=== PATIENT | male | born 1985 | race Caucasian/White ===

== ENCOUNTER 2017-02-02 00:13 | Inpatient (IN) | payer MEDICAID, OTHER ==
--- NOTE | 2017-02-02 01:23 | ED ---
Psych HPI - General Chief Complaint: Psychiatric Symptoms Stated Complaint: Mental Health Time Seen by Provider: 02/02/17 00:32 Source: patient Mode of arrival: ambulatory - History of Present Illness Initial Comments: 31-year-old male patient presents to emergency department today with chief complaints of suicidal ideation. Patient states that he has been depressed and having thoughts of killing himself since Saturday. Patient states he has thought of many ways to do it including shooting himself or his most likely plan to jump off the bridge. Patient states that he has been using drugs including cocaine, opiates, and marijuana. Patient states that he feels like he has had depression for a long time however has never been diagnosed. Patient denies any use of antidepressant medications. Denies counseling or seeing psychiatrist. Patient denies ever trying to harm himself in the past. Patient denies any alcohol use. Denies any physical symptoms or concerns. - Related Data Previous Rx's Medication Instructions Recorded HYDROcodone/APAP 5-325MG [[place] 5] 1 each PO Q4HR PRN #10 tab 06/30/15 Allergies Allergy/AdvReac Type Severity Reaction Status Date / Time ibuprofen Allergy Unknown Verified 02/02/17 00:26 Penicillins Allergy Unknown Verified 02/02/17 00:26 Review of Systems ROS Statement: Those systems with pertinent positive or pertinent negative responses have been documented in the HPI. ROS Other: All systems not noted in ROS Statement are negative. Past Medical History Additional Past Medical History / Comment(s): kidney stones History of Any Multi-Drug Resistant Organisms: MRSA Date of last positivie culture/infection: 2007/MRSA MDRO Source:: left arm Past Surgical History: Orthopedic Surgery Past Psychological History: No Psychological Hx Reported Smoking Status: Current every day smoker Past Alcohol Use History: None Reported Past Drug Use History: None Reported General Exam Limitations: no limitations General appearance: alert, in no apparent distress Head exam: Present: atraumatic, normocephalic, normal inspection Eye exam: Present: normal appearance, PERRL, EOMI. Absent: scleral icterus, conjunctival injection, periorbital swelling ENT exam: Present: normal exam, mucous membranes moist Respiratory exam: Present: normal lung sounds bilaterally. Absent: respiratory distress, wheezes, rales, rhonchi, stridor Cardiovascular Exam: Present: regular rate, normal rhythm, normal heart sounds. Absent: systolic murmur, diastolic murmur, rubs, gallop, clicks Neurological exam: Present: alert, oriented X3, CN II-XII intact Psychiatric exam: Present: normal affect, normal mood Skin exam: Present: warm, dry, intact, normal color. Absent: rash Course Vital Signs 02/02/17 00:21 Temperature 99.1 F Pulse Rate 88 Respiratory 16 Rate Blood Pressure 143/87 O2 Sat by Pulse 99 Oximetry Medical Decision Making - Medical Decision Making 31-year-old male patient presented to the emergency department today with chief complaint of suicidal ideation and depression. Patient did admit to having a plan to jump off the bridge. Did admit to use of opiates, cocaine, and marijuana. Patient was evaluated by them from EPS. She states the patient will be admitted to the mental health unit for further evaluation. - Lab Data Lab Results 02/02/17 Range/Units 01:00 Urine Opiates Screen Detected H (NotDetected) Ur Oxycodone Screen Not Detected (NotDetected) Urine Methadone Screen Not Detected (NotDetected) Ur Propoxyphene Screen Not Detected (NotDetected) Ur Barbiturates Screen Not Detected (NotDetected) U Tricyclic Antidepress Not Detected (NotDetected) Ur Phencyclidine Scrn Not Detected (NotDetected) Ur Amphetamines Screen Not Detected (NotDetected) U Methamphetamines Scrn Not Detected (NotDetected) U Benzodiazepines Scrn Not Detected (NotDetected) Urine Cocaine Screen Detected H (NotDetected) U Marijuana (THC) Screen Not Detected (NotDetected) Disposition Clinical Impression: Depression, Suicidal ideation Disposition: ADMITTED IP TO THIS [facility] Condition: Fair Referrals: Declan Shirley MD [Primary Care Provider] - 1-2 days Decision to Admit Reason: Admit from EC Decision Date: 02/02/17 Decision Time: 02:11
[2017-02-02] MEDS ORDERED: MAG HYDROX/AL HYDROX/SIMETH 30 ML CUP PO PRN (03:09)
[2017-02-02] MEDS ORDERED: LORazepam 1 MG TAB PO PRN (03:21)
[2017-02-02] MEDS ORDERED: MAGNESIUM HYDROXIDE 2,400 MG/10 ML CUP PO PRN (03:23)
[2017-02-02 08:30] LABS: Basophils % (A) 0 %; CH 30.4; CHCM 33.5; Eosinophils # (A) 0.2 k/uL (0-0.7); Eosinophils % (A) 3 %; HCT 45.1 % (39.0-53.0); HDW 2.53; HGB 14.9 gm/dL (13.0-17.5); Luc % (Auto) 3; Lymphocytes # (A) 1.4 k/uL (1.0-4.8); Lymphocytes % (A) 22 %; MCH 30.2 pg (25.0-35.0); MCV 91.3 fL (80.0-100.0); Mean Platelet Volume 7.1; Monocytes # (A) 0.7 k/uL (0-1.0); Monocytes % (A) 10 %; Neutrophils % (A) 62 %; RBC 4.93 m/uL (4.30-5.90); RDW 13.7 % (11.5-15.5); WBC 6.4 k/uL (3.8-10.6); WBC (Perox) 6.51
[2017-02-02 08:52] LABS: ALT 117 U/L (21-72); AST 50 U/L (17-59); Alkaline Phosphatase 64 U/L (38-126); Anion Gap 10 mmol/L; Blood Urea Nitrogen 12 mg/dL (9-20); Calcium 9.7 mg/dL (8.4-10.2); Carbon Dioxide 27 mmol/L (22-30); Chloride 105 mmol/L (98-107); Glucose 91 mg/dL (74-99); Non-African American GFR(MDRD) >60 (>60 ml/min/1.73 sqM); Potassium 4.2 mmol/L (3.5-5.1); Sodium 142 mmol/L (137-145); Total Bilirubin 1.2 mg/dL (0.2-1.3); Total Protein 7.4 g/dL (6.3-8.2)
[2017-02-02] MEDS: NICOTINE 14MG/24HR PATCH TRANSDERM SCH (09:07)
[2017-02-02] MEDS: FLUoxetine HCL 20 MG CAP PO SCH (11:30)
[2017-02-02] MEDS ORDERED: diphenhydrAMINE 25 MG CAP PO PRN (14:12)
[2017-02-02] MEDS ORDERED: cloNIDine HCL 0.1 MG TAB PO PRN ×2 (14:35→17:31)
[2017-02-02] MEDS ORDERED: SODIUM CHLORIDE 0.9% 1,000 ML IV ONE (14:40)
[2017-02-02] MEDS ORDERED: SODIUM CHLORIDE 0.9% 1,000 ML IV SCH (14:45)
--- NOTE | 2017-02-02 15:06 | P.HPMEDMHU ---
History of Present Illness H&P Date: 02/02/17 Chief Complaint: Suicidal ideation The patient is a 31-year-old male with a past medical history of major depression, opiate addiction on Suboxone therapy who presented to the ER With suicidal ideation, depression or increasing symptoms of helplessness and hopelessness, stating that he feels like his family would be better off without him, Ideas of possibly jumping off a bridge or using a gun despite reported no access to any firearms. The patient denies any therapy with antidepressant medications. He reports a long history of opiates heroin was previously on methadone program few years ago as a been on Suboxone therapy since of last year. He reports running out of his last Suboxone approximately 2 days ago, the past 24 hours patient reports withdrawal symptoms of nausea and diarrhea, anxiety, Runny nose, watery eyes reportedly took four 10 mg Percocet he purchased off the streets to decrease his symptoms. The patient reports that his former fianc from a drug overdose. Reports previously being on high doses of medical methadone. Reports living in the [facility] and getting Suboxone filled by Renetta Mendoza. Review of Systems Constitutional: Patient reports no fever, no chills, no weight changes, no change in appetite Eyes: Patient reports no double vision, no visual changes ENT: Patient reports no rhinorrhea, no post nasal drip, no sore throat Cardiovascular: Patient reports no chest, no edema, no palpitations, no syncope , no orthopnea, no paroxysmal nocturnal dyspnea. Respiratory: Patient reports no dyspnea, no cough, no wheeze Gastrointestinal: Patient reports no nausea, no vomiting, no constipation, no diarrhea Genitourinary: Patient reports no dysuria, no urinary frequency, no hematuria. Musculoskeletal: Patient reports no unusual joint pain, no joint swelling or weakness. Patient reports no muscular pain. Psychiatric: Flat affect, has some insight. Denies any auditory or visual medications, Patient reports no changes in memory. Endocrine: Patient reports no thirst, no polyuria, no cold intolerance, no heat intolerance. Neurological: Patient reports no unusual paresthesias, no seizures, no paresis , no paralysis, no facila droop, no headache. Heme/Lymphatic: Patient reports no easy bruising, no bleeding tendency, no lymphadenopathy. Allergic/ Immunologic: Patient reports no recent allergic reactions or immunologic history. Skin: Patient reports no rashes or unusual lesions. Past Medical History Additional Past Medical History / Comment(s): kidney stones History of Any Multi-Drug Resistant Organisms: MRSA Date of last positivie culture/infection: 2007/MRSA MDRO Source:: left arm Past Surgical History: Orthopedic Surgery Smoking Status: Current every day smoker Medications and Allergies Home Medications Medication Instructions Recorded Confirmed Type Buprenorphine HCl/Naloxone HCl 1.5 film SUBLINGUAL Q12H 02/02/17 02/02/17 History [Suboxone 8 mg-2 mg Sl Film] Allergies Allergy/AdvReac Type Severity Reaction Status Date / Time ibuprofen Allergy Unknown Verified 02/02/17 06:24 Penicillins Allergy Unknown Verified 02/02/17 06:24 Physical Exam Vitals: Vital Signs Temp Pulse Resp BP Pulse Ox 02/02/17 02:48 97.6 F 74 18 105/56 98 02/02/17 00:21 99.1 F 88 16 143/87 99 Intake and Output 02/01/17 02/02/17 02/02/17 22:59 06:59 14:59 Other: Weight 92.986 kg Constitutional: No acute distress, conversant, pleasant Eyes: Anicteric sclerae, moist conjunctiva, no lid-lag, PERRLA ENMT: NC/AT,Oropharynx clear, no erythema, exudates Neck:Supple, FROM, no masses, or JVD, No carotid bruits; No thyromegaly Lungs: Clear to auscultation, Clear to percussion, Normal respiratory effort, no accessory muscle use Cardiovascular: Heart regular in rate and rhythm, No murmurs, gallops, or rubs no peripheral edema Abdominal: Soft Nontender, nom distended, no guarding, no rebound or rigidity, Normoactive bowel sounds No hepatomegaly, No splenomegaly, No palpable mass No abdominal wall hernia noted Skin: Normal temperature, tone, texture, turgor, No induration No subcutaneous nodules, No rash, lesions, No ulcers, multiple tattoos Extremities:No digital cyanosis No clubbing, Pedal pulses intact and symmetrical Radial pulses intact and symmetrical Normal gait and station, No calf tenderness Psychiatric: Alert and oriented to person, place and time, Appropriate affect Intact judgement Neuro: Muscles Strength 5/5 in all 4 extremities, Sensation to light touch grossly present throughout, Cranial nerves II-XII grossly intact. No focal sensory deficits Cranial Nerve Examination - Cranial Nerves Cranial Nerve II- Optic: Intact Cranial Nerve III- Oculomotor: Intact Cranial Nerve IV- Trochlear: Intact Cranial Nerve V- Trigeminal: Intact Cranial Nerve - Abducens: Intact Cranial Nerve VII- Facial: Intact Cranial Nerve VIII- Auditory: Intact Cranial Nerve IX- Glossopharyngeal: Intact Cranial Nerve X- Vagus: Intact Cranial Nerve XI- Accessory: Intact Cranial Nerve XII- Hypoglossal: Intact Results CBC & Chem 7: 02/02/17 08:01 02/02/17 08:01 Labs: Abnormal Lab Results - Last 24 Hours (Table) 02/02/17 02/02/17 Range/Units 01:00 08:01 ALT 117 H (21-72) U/L Urine Opiates Screen Detected H (NotDetected) Urine Cocaine Screen Detected H (NotDetected) Assessment and Plan Plan: Assessment and plan Opiate addiction * There is concern the patient might go into withdrawals given the fact that he was taking approximately total of 24 mg of Suboxone daily * Attempted to check an ekg, however the patient has refused, therefore I will not start the patient on methadone 10 mg by mouth 4 times a day, will continue treat supportively with Benadryl when necessary agitation anxiety and formication * we'll attempt to get a consultation for addictions specialist if available, unfortunately there might be little we can do to prevent withdrawals in this scenario Suicidal ideation * Management per primary team Cocaine Abuse * COnsult esther management for community resources Persistent hepatitis C Disposition * At this point there is not much I can do as the patient refused a EKG therefore will not be started on methadone, he will likely go through withdrawals and there is not much more I can offer here * We'll sign off today
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
[2017-02-02] MEDS ORDERED: LORazepam 0.5 MG TAB PO PRN (17:28)
[2017-02-02] MEDS ORDERED: OLANZapine 5 MG TAB PO ONE (17:58)
[2017-02-02] MEDS: OLANZapine 5 MG TAB PO SCH (21:37)
[2017-02-03] MEDS: NICOTINE 14MG/24HR PATCH TRANSDERM SCH (09:24)
[2017-02-03] MEDS: OLANZapine 5 MG TAB PO SCH ×3 (09:24→20:56)
[2017-02-03] MEDS: FLUoxetine HCL 20 MG CAP PO SCH (09:25)
--- NOTE | 2017-02-03 12:17 | P.PN ---
Subjective Principal diagnosis: Suicidal ideation with history of major depression, opioid addiction Patient electing to proceed with EKG today, denies reports of any withdrawal symptoms. Objective - Vital Signs Vital signs: Vital Signs Temp 97.6 F 02/03/17 06:42 Pulse 65 02/03/17 06:42 Resp 16 02/03/17 06:42 BP 113/70 02/03/17 06:42 Pulse Ox 98 02/02/17 02:48 Intake & Output 02/02/17 02/03/17 02/03/17 18:59 06:59 18:59 Weight 79.6 kg - Exam Constitutional: No acute distress, conversant, pleasant Eyes: Anicteric sclerae, moist conjunctiva, no lid-lag, PERRLA ENMT: NC/AT,Oropharynx clear, no erythema, exudates Neck:Supple, FROM, no masses, or JVD, No carotid bruits; No thyromegaly Lungs: Clear to auscultation, Clear to percussion, Normal respiratory effort, no accessory muscle use Cardiovascular: Heart regular in rate and rhythm, No murmurs, gallops, or rubs no peripheral edema Abdominal: Soft Nontender, nom distended, no guarding, no rebound or rigidity, Normoactive bowel sounds No hepatomegaly, No splenomegaly, No palpable mass No abdominal wall hernia noted Skin: Normal temperature, tone, texture, turgor, No induration No subcutaneous nodules, No rash, lesions, No ulcers, multiple tattoos Extremities:No digital cyanosis No clubbing, Pedal pulses intact and symmetrical Radial pulses intact and symmetrical Normal gait and station, No calf tenderness Psychiatric: Alert and oriented to person, place and time, Appropriate affect Intact judgement Neuro: Muscles Strength 5/5 in all 4 extremities, Sensation to light touch grossly present throughout, Cranial nerves II-XII grossly intact. No focal sensory deficits - Labs CBC & Chem 7: 02/02/17 08:01 02/02/17 08:01 Assessment and Plan Plan: Opiate addiction There is concern the patient might go into withdrawals given the fact that he was taking approximately total of 24 mg of Suboxone daily EKG showing normal QT interval. will initiated the patient on methadone 10 mg by mouth 3 times a day, will continue treat supportively with Benadryl when necessary agitation anxiety and formication we'll attempt to get a consultation for addictions specialist if available, unfortunately there might be little we can do to prevent withdrawals in this scenario Suicidal ideation Management per primary team Cocaine Abuse Consult esther management for community resources Persistent hepatitis C Disposition Medically stable sign off
[2017-02-03] MEDS: cloNIDine HCL 0.1 MG TAB PO SCH ×3 (12:46→20:56)
[2017-02-03] MEDS: METHADONE 10 MG TAB PO SCH ×2 (12:48→17:49)
--- NOTE | 2017-02-03 12:55 | XR ---
EXAMINATION TYPE: XR chest 2V DATE OF EXAM: 02/03/2017 COMPARISON: 04/14/2020 INDICATION: History rib fractures and chest wall nodule TECHNIQUE: Frontal and lateral views of the chest are obtained. FINDINGS: The heart size is normal. The pulmonary vasculature is normal. The lungs are clear. IMPRESSION: 1. No acute pulmonary process.
--- NOTE | 2017-02-03 14:21 | PN ---
PROGRESS NOTE DATE OF SERVICE: 02/03/2017. CHIEF COMPLAINT: The patient was depressed and suicidal. He had various thoughts about how he might kill himself. He was feeling hopeless. He had a relapse for 2 days on drugs including cocaine opioids and marijuana. He has been using Suboxone since last April. INTERVAL HISTORY: Patient has been doing fair. He had a quiet evening last night. He says that he feels he is experiencing a considerable amount of opioid withdrawal. He was seen by Dr. Melton. Dr. Melton indicated that he needed a baseline EKG and then could be started on methadone as a substitute for Suboxone. The patient declined having the EKG done. He thought that was a superfluous test. He says today that he did understand that the EKG was necessary for him to get started on methadone. He, otherwise, has no issue with getting the EKG. He does want to get started. He notes that he does have mental health services available to him, though he will need to make calls to set up a followup appointments. He slept fair last night. He has been attending groups. He has a somewhat withdrawn manner. He has not had change in his general health. He tolerates his psychotropic medications. MENTAL STATUS: Patient gave fair eye contact. Psychomotor activity was slow. Speech was monotone. He answered questions with brief responses. His affect was blunted. His mood dysphoric. He was somewhat distressed. ASSESSMENT: I will continue the current diagnosis and the treatment plan. Continue psychotropic medications the same. The patient is willing to get the EKG done and then we will start him on methadone 10 mg 4 times a day. We will focus on discharge planning though it is not likely we will be able to discharge him until Saturday or Saturday. It is critical that he gets appropriate services given his long- term and complicated psychiatric and substance abuse history. MMODL / IJN: [id number] /
[2017-02-03] MEDS ORDERED: OLANZapine 5 MG TAB PO STA (15:09)
[2017-02-03] MEDS ORDERED: OLANZapine 5 MG TAB PO ONE (17:44)
[2017-02-04] MEDS: METHADONE 10 MG TAB PO SCH ×4 (01:56→17:57)
[2017-02-04 07:05] VITALS: TEMP 97.7
[2017-02-04] MEDS: NICOTINE 14MG/24HR PATCH TRANSDERM SCH (09:57)
[2017-02-04] MEDS: FLUoxetine HCL 20 MG CAP PO SCH (09:57)
[2017-02-04] MEDS: cloNIDine HCL 0.1 MG TAB PO SCH ×3 (09:58→20:57)
[2017-02-04] MEDS: OLANZapine 5 MG TAB PO SCH (09:58)
--- NOTE | 2017-02-04 12:22 | P.PN ---
Progress Note - Text Interval History: Patient is a 31-year-old male who was seen today for the first time after his admission for suicidal ideation. When I asked him what was going on he said that he had contacted a friend because he was cold and had no place to live and the friend told him to say he was suicidal when he came to the emergency room that he would be admitted. Patient states he was told that he would be discharged today and had his family on their way here. Patient also reported that he does not want to return to Suboxone once to start using methadone which she was started on here in the hospital. Patient had been on Suboxone as an outpatient. Patient states he's been using opiates since the age of 16. Mental Status: Appearance/Attitude: Patient is neatly groomed, makes good eye contact and is superficially cooperative. Behavior: Patient does not display any psychomotor agitation or retardation. Speech/Language: Patient's speech is spontaneous, normal volume and rhythm and he is coherent Thought Process: Patient is goal-directed there is no evidence of circumstantial or tangential thought and no loose associations or flight of ideas. Thought Content: Patient denies any auditory or visual hallucinations no paranoid or delusional ideation or elicited. Patient reports that he is sleeping and eating well but wanted his methadone increased substantially. Patient states that he was depressed because he was homeless and stated suicidal ideation so that he would get admitted. Patient states that he was going to be discharged today and return to [place] to see his family for the day and then returned back to this area. Patient states that he wants to continue with methadone and not return to Suboxone. Suicidal/Homicidal Ideation: Patient denies any current suicidal or homicidal ideation. Sensorium/Cognition: Patient is alert and oriented to person, place, and time and his memory is grossly intact. Mood/Affect: Patient's mood is irritable and his affect is appropriate to his mood. Insight/Judgement: Patient's insight and judgment are poor. Assessment: Patient states that he has been using opiates since the age of 16 and was recently on Suboxone but relapsed several days ago. Patient now wants to continue on methadone but one did meet to increase the dose substantially. Patient also thought he was being discharged today to go visit his family for the day and then return here for follow-up care. Patient now states that he is not suicidal and stated that he really wasn't when on admission but stated that because he was cold and had no place to live. Patient's chest x-ray revealed no acute process. Plan: Patient will be continued on his Prozac 20 mg to target his depression and he has refused to take the Zyprexa which will be discontinued as I see no evidence of a bipolar disorder or psychotic symptomatology. Patient will be continued on methadone a total of 40 mg a day. Patient will not be discharged until appropriate follow-up care as been made with the methadone clinic and he is requesting community mental health as well.Patient will be discharged tomorrow once follow-up care has been arranged at a methadone clinic.
[2017-02-04] MEDS: ACETAMINOPHEN TAB 325 MG TAB PO PRN ×2 (16:35→20:56)
[2017-02-05] MEDS: METHADONE 10 MG TAB PO SCH ×3 (00:52→11:55)
[2017-02-05] MEDS: ACETAMINOPHEN TAB 325 MG TAB PO PRN ×2 (01:51→06:09)
[2017-02-05] MEDS: NICOTINE 14MG/24HR PATCH TRANSDERM SCH (09:18)
[2017-02-05] MEDS: FLUoxetine HCL 20 MG CAP PO SCH (09:19)
[2017-02-05] MEDS: cloNIDine HCL 0.1 MG TAB PO SCH (09:19)
[2017-02-05 09:23] VITALS: BP 136/90; PULSE 91; RESP 20
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
== END 2017-02-05 12:58 | disposition home or self-care (01) | DRG 897 ==
LOC: EC 00:13 → 3MHU 02:32
PROVIDERS: ADMIT Psychiatry & Neurology Psychiatry; ATTEND Psychiatry & Neurology Psychiatry
DX: F11.14 Opioid abuse with opioid-induced mood disorder (principal); F33.2 Major depressive disorder, recurrent severe without psychotic features; R45.851 Suicidal ideations; F14.10 Cocaine abuse, uncomplicated; B19.20 Unspecified viral hepatitis C without hepatic coma; F17.200 Nicotine dependence, unspecified, uncomplicated; F43.10 Post-traumatic stress disorder, unspecified; Z59.0 Homelessness; Z79.899 Other long term (current) drug therapy; Z87.442 Personal history of urinary calculi; Z91.410 Personal history of adult physical and sexual abuse
CPT/HCPCS: 71020; 80053; 80306; 82075; 84443; 85025; 93005; 99285

== ENCOUNTER 2017-08-23 22:30 | Emergency (ER) | payer MEDICAID, OTHER ==
--- NOTE | 2017-08-23 23:24 | ED ---
General Adult HPI - General Source: patient, RN notes reviewed, old records reviewed Mode of arrival: ambulatory Limitations: no limitations <Claudio Pham - Last Filed: 08/23/17 23:23> <Nishant Mascorro - Last Filed: 08/24/17 03:43> - General Chief complaint: Psychiatric Symptoms Stated complaint: Mental Health Eval Time Seen by Provider: 08/23/17 22:46 - History of Present Illness Initial comments: This is a 32-year-old male to the ER for evaluation. Patient's presenting for evaluation of psychiatric evaluation. Patient with increased thoughts of depression and suicidal ideation. No recent drugs or alcohol abuse (Claudio Pham) - Related Data Home Medications Medication Instructions Recorded Confirmed Buprenorphine HCl/Naloxone HCl 1 film SL TID 08/23/17 08/23/17 [Suboxone 8 mg-2 mg Sl Film] Ibuprofen [Motrin Ib] 800 mg PO Q6H PRN 08/23/17 08/23/17 Allergies Allergy/AdvReac Type Severity Reaction Status Date / Time ibuprofen Allergy Unknown Verified 08/23/17 23:15 Penicillins Allergy Unknown Verified 08/23/17 23:15 Review of Systems ROS Other: All systems not noted in ROS Statement are negative. <Claudio Pham - Last Filed: 08/23/17 23:23> ROS Other: All systems not noted in ROS Statement are negative. <Nishant Mascorro - Last Filed: 08/24/17 03:43> ROS Statement: Those systems with pertinent positive or pertinent negative responses have been documented in the HPI. Past Medical History Additional Past Medical History / Comment(s): kidney stones History of Any Multi-Drug Resistant Organisms: MRSA Date of last positivie culture/infection: 2007/MRSA MDRO Source:: left arm Past Surgical History: Orthopedic Surgery Past Psychological History: No Psychological Hx Reported Smoking Status: Current every day smoker Past Alcohol Use History: Occasional Past Drug Use History: Marijuana, Opiates <Claudio Pham - Last Filed: 08/23/17 23:23> General Exam Limitations: no limitations General appearance: alert, in no apparent distress Head exam: Present: atraumatic, normocephalic, normal inspection Eye exam: Present: normal appearance, PERRL, EOMI. Absent: scleral icterus, conjunctival injection, periorbital swelling ENT exam: Present: normal exam, mucous membranes moist Neck exam: Present: normal inspection. Absent: tenderness, meningismus, lymphadenopathy Respiratory exam: Present: normal lung sounds bilaterally. Absent: respiratory distress, wheezes, rales, rhonchi, stridor Cardiovascular Exam: Present: regular rate, normal rhythm, normal heart sounds. Absent: systolic murmur, diastolic murmur, rubs, gallop, clicks GI/Abdominal exam: Present: soft, normal bowel sounds. Absent: distended, tenderness, guarding, rebound, rigid Extremities exam: Present: normal inspection, full ROM, normal capillary refill. Absent: tenderness, pedal edema, joint swelling, calf tenderness Back exam: Present: normal inspection Neurological exam: Present: alert, oriented X3, CN II-XII intact Psychiatric exam: Present: normal affect, normal mood Skin exam: Present: warm, dry, intact, normal color. Absent: rash <Claudio Pham - Last Filed: 08/23/17 23:23> Course <Claudio Pham - Last Filed: 08/23/17 23:23> <Nishant Mascorro - Last Filed: 08/24/17 03:43> Vital Signs 08/23/17 22:37 Temperature 98.3 F Pulse Rate 96 Respiratory 20 Rate Blood Pressure 134/73 O2 Sat by Pulse 98 Oximetry - Reevaluation(s) Reevaluation #1: 08/23/17 23:23 Patient is medically clear for psychiatric evaluation (Claudio Pham) - Lab Data Lab Results 08/23/17 Range/Units 23:30 Urine Opiates Screen Detected H (NotDetected) Ur Oxycodone Screen Not Detected (NotDetected) Urine Methadone Screen Not Detected (NotDetected) Ur Propoxyphene Screen Not Detected (NotDetected) Ur Barbiturates Screen Not Detected (NotDetected) U Tricyclic Antidepress Not Detected (NotDetected) Ur Phencyclidine Scrn Not Detected (NotDetected) Ur Amphetamines Screen Not Detected (NotDetected) U Methamphetamines Scrn Not Detected (NotDetected) U Benzodiazepines Scrn Not Detected (NotDetected) Urine Cocaine Screen Not Detected (NotDetected) U Marijuana (THC) Screen Detected H (NotDetected) Disposition <Claudio Pham - Last Filed: 08/23/17 23:23> <Nishant Mascorro - Last Filed: 08/24/17 03:43> Clinical Impression: Mood disorder Disposition: HOME SELF-CARE Condition: Good Instructions: Mood Disorders (ED) Referrals: None,Stated [Primary Care Provider] - 1-2 days
[2017-08-24 00:08] LABS: Amphetamine Screen,Urine Not Detected (NotDetected); Barbiturate Screen,Urine Not Detected (NotDetected); Benzodiazepines Screen,Urine Not Detected (NotDetected); Cocaine Screen,Urine Not Detected (NotDetected); Methadone Screen, Urine Not Detected (NotDetected); Opiate Screen,Urine Detected (NotDetected); Oxycodone Screen, Urine Not Detected (NotDetected); Phencyclidine Screen,Urine Not Detected (NotDetected); Tricyclic Antidepressant,Urine Not Detected (NotDetected); Urn Cannabinoid Scrn Detected (NotDetected)
[2017-08-24 04:23] VITALS: BP 103/55; PULSE 74; RESP 16; TEMP 97.9
== END 2017-08-24 04:32 | disposition home or self-care (01) ==
LOC: EC 22:30
DX: F32.9 Major depressive disorder, single episode, unspecified (principal); F17.200 Nicotine dependence, unspecified, uncomplicated; Z86.14 Personal history of Methicillin resistant Staphylococcus aureus infection; Z79.891 Long term (current) use of opiate analgesic; Z88.0 Allergy status to penicillin; Z88.6 Allergy status to analgesic agent
CPT/HCPCS: 80306; 82075; 99285

== ENCOUNTER 2018-06-18 12:02 | Emergency (ER) | payer OTHER ==
[2018-06-18] MEDS ORDERED: IPRATROPIUM-ALBUTEROL 3 ML NEB INHALATION STA (12:34)
--- NOTE | 2018-06-18 12:44 | ED ---
URI HPI - General Chief Complaint: Upper Respiratory Infection Stated Complaint: cough Time Seen by Provider: 06/18/18 12:18 Source: patient, RN notes reviewed Mode of arrival: ambulatory Limitations: no limitations - History of Present Illness Initial Comments: 32-year-old male presents emergency Department chief complaint cough congestion 2 weeks. Patient states he does have chronic ALLERGIES and states initially this felt like his ALLERGIES but symptoms have worsened. He has noticed some wheezing at home, shortness of breath. He did try his son's albuterol treatment at home which seemed to help some. Patient reports no fever, chills. Patient has been using some [id number] cough and cold medications but said minimal relief. Patient denies sore throat, ear pain, headache or dizziness. - Related Data Previous Rx's Medication Instructions Recorded Albuterol Nebulized [Ventolin 2.5 mg INHALATION Q4H PRN #25 nebu 06/18/18 Nebulized] Azithromycin [Zithromax Z-pack] 0 mg PO DIRECTED #1 pack 06/18/18 predniSONE 50 mg PO DAILY #5 tab 06/18/18 Allergies Allergy/AdvReac Type Severity Reaction Status Date / Time ibuprofen Allergy Unknown Verified 06/18/18 12:31 Penicillins Allergy Unknown Verified 06/18/18 12:31 Review of Systems ROS Statement: Those systems with pertinent positive or pertinent negative responses have been documented in the HPI. ROS Other: All systems not noted in ROS Statement are negative. Past Medical History Past Medical History: No Reported History Additional Past Medical History / Comment(s): kidney stones History of Any Multi-Drug Resistant Organisms: MRSA Date of last positivie culture/infection: 2007/MRSA MDRO Source:: left arm Past Surgical History: Orthopedic Surgery Past Psychological History: No Psychological Hx Reported Smoking Status: Current every day smoker Past Alcohol Use History: None Reported, Occasional Past Drug Use History: None Reported, Marijuana, Opiates General Exam Limitations: no limitations General appearance: alert, in no apparent distress Head exam: Present: atraumatic, normocephalic, normal inspection ENT exam: Present: normal exam, normal oropharynx, mucous membranes moist, TM's normal bilaterally Neck exam: Present: normal inspection. Absent: tenderness, meningismus, lymphadenopathy Respiratory exam: Present: wheezes. Absent: normal lung sounds bilaterally, respiratory distress, rales, rhonchi, stridor Cardiovascular Exam: Present: normal rhythm, tachycardia, normal heart sounds. Absent: systolic murmur, diastolic murmur, rubs, gallop, clicks GI/Abdominal exam: Present: soft, normal bowel sounds. Absent: distended, tenderness, guarding, rebound, rigid Neurological exam: Present: alert, oriented X3, CN II-XII intact Skin exam: Present: warm, dry, intact, normal color. Absent: rash Course Vital Signs 06/18/18 06/18/18 12:14 13:00 Temperature 98.1 F Pulse Rate 125 H 120 H Respiratory 22 Rate Blood Pressure 131/78 O2 Sat by Pulse 99 Oximetry Medical Decision Making - Medical Decision Making 32-year-old male presented unresponsive for cough congestion. Patient has been sick for over 2 weeks. Patient had chest x-ray which was unremarkable. Patient did have mild wheezing on exam. Patient is a daily smoker. Patient we treated for acute bronchitis. 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 Disposition Clinical Impression: Acute bronchitis Disposition: HOME SELF-CARE Condition: Stable Instructions: Bronchospasm (ED), Acute Bronchitis (ED) Additional Instructions: Please return to the Emergency Department if symptoms worsen or any other concerns. Prescriptions: Albuterol Nebulized [Ventolin Nebulized] 2.5 mg INHALATION Q4H PRN #25 nebu PRN Reason: difficulty in breathing Azithromycin [Zithromax Z-pack] 0 mg PO DIRECTED #1 pack predniSONE 50 mg PO DAILY #5 tab Is patient prescribed a controlled substance at d/c from ED?: No Referrals: None,Stated [Primary Care Provider] - 1-2 days Time of Disposition: 13:10
--- NOTE | 2018-06-18 13:07 | XR ---
EXAMINATION TYPE: XR chest 2V DATE OF EXAM: 06/18/2018 COMPARISON: Chest x-ray February 03, 2017 HISTORY: Cough and congestion for weeks. TECHNIQUE: Frontal and lateral views of the chest are obtained. FINDINGS: There is no focal air space opacity, pleural effusion, or pneumothorax seen. The cardiac silhouette size is within normal limits. The osseous structures are intact. IMPRESSION: No suspicious acute pulmonary process.
[2018-06-18 13:39] VITALS: BP 144/87; PULSE 94; RESP 20; TEMP 98.2
== END 2018-06-18 13:30 | disposition home or self-care (01) ==
LOC: EC 12:02
DX: J20.9 Acute bronchitis, unspecified (principal); F17.200 Nicotine dependence, unspecified, uncomplicated; Z86.14 Personal history of Methicillin resistant Staphylococcus aureus infection; Z98.890 Other specified postprocedural states; Z88.0 Allergy status to penicillin; Z88.6 Allergy status to analgesic agent
CPT/HCPCS: 71046; 94640; 99283; 99406

== ENCOUNTER 2018-07-21 02:22 | Inpatient (IN) | payer OTHER ==
[2018-07-21] MEDS ORDERED: VANCOMYCIN IV PER PHARMACY 1 EACH MISC MISCELLANE PRN (03:23)
[2018-07-21] MEDS ORDERED: VANCOMYCIN 1,500 MG in SODIUM CHLORIDE 0.9% 250 ML IVPB STA (03:31)
[2018-07-21] MEDS ORDERED: LEVOFLOXACIN 750MG-D5W PMX 750 MG in DEXTROSE/WATER 1 150ML.BAG IVPB STA (03:31)
[2018-07-21] MEDS ORDERED: RX INFO: IV CONTRAST WAS GIVEN 1 EACH MISC MISCELLANE PRN (03:52)
[2018-07-21] MEDS: SODIUM CHLORIDE 0.9% 500 ML 500 ML IV SCH ×2 (04:01→04:43)
--- NOTE | 2018-07-21 04:04 | ED ---
ENT HPI - General Chief complaint: ENT Stated complaint: dental pain Time Seen by Provider: 07/21/18 03:00 Source: patient Mode of arrival: ambulatory Limitations: no limitations - History of Present Illness Initial comments: Vinicius is a 33-year-old male with history of MRSA infections in the past who presents the emergency department today for evaluation of infection in his nose and swelling of his face. Patient reports on he noticed a sore inside of his left nostril he thought this may be an ingrown hair he does report that he uses an electronic care terminated trim the hair is within his nose. Patient reports that since any symptoms some purulent drainage worsening pain and worsening swelling of his face. Today he noted that his entire left cheek and upper lip are swollen the pain became unbearable which prompted him to come to the ER for evaluation. Patient denies any measured fevers at home. He does report he's had a vague headache. - Related Data Previous Rx's Medication Instructions Recorded Albuterol Nebulized [Ventolin 2.5 mg INHALATION Q4H PRN #25 nebu 06/18/18 Nebulized] Azithromycin [Zithromax Z-pack] 0 mg PO DIRECTED #1 pack 06/18/18 Benzonatate [Tessalon Perles] 100 mg PO TID PRN #15 capsule 06/18/18 predniSONE 50 mg PO DAILY #5 tab 06/18/18 Allergies Allergy/AdvReac Type Severity Reaction Status Date / Time ibuprofen Allergy Unknown Verified 07/21/18 02:51 Penicillins Allergy Unknown Verified 07/21/18 02:51 Review of Systems ROS Statement: Those systems with pertinent positive or pertinent negative responses have been documented in the HPI. ROS Other: All systems not noted in ROS Statement are negative. Past Medical History Past Medical History: No Reported History Additional Past Medical History / Comment(s): kidney stones History of Any Multi-Drug Resistant Organisms: MRSA Date of last positivie culture/infection: 2007/MRSA MDRO Source:: left arm Past Surgical History: Orthopedic Surgery Past Psychological History: No Psychological Hx Reported Smoking Status: Current every day smoker Past Alcohol Use History: None Reported, Occasional Past Drug Use History: None Reported, Marijuana, Opiates General Exam - General Exam Comments Initial Comments: Physical Exam GENERAL: Patient appears uncomfortable HENT: Normocephalic Normal external ears normal auditory canals is normal bilaterally Left naris with an abscess on the septum Significant boggy edema of the upper lip the left naris, the left cheek EYES: PERRL, EOMI PULMONARY: Unlabored respirations. No audible rales rhonchi or wheezing was noted. CARDIOVASCULAR: There is a regular rate and rhythm without any murmurs gallops or rubs. ABDOMEN: Soft and nontender with normal bowel sounds. SKIN: Skin is clear with no lesions or rashes and otherwise unremarkable. : Deferred NEUROLOGIC: Patient is alert and oriented x3. Moving all extremities spontaneously Cranial nerves II through XII grossly intact MUSCULOSKELETAL: Normal extremities with adequate strength and full range of motion. No lower extremity swelling or edema. No calf tenderness. PSYCHIATRIC: Normal psychiatric evaluation. Limitations: no limitations Limitations: no limitations Course Vital Signs 07/21/18 02:48 Temperature 98.0 F Pulse Rate 92 Respiratory 18 Rate Blood Pressure 157/90 O2 Sat by Pulse 99 Oximetry Medical Decision Making - Medical Decision Making The patient was seen and evaluated history was obtained from patient and signed patient with an obvious septal abscess with swelling of the left face and upper lip as well as swelling of the left side of the nose Patient does report a headache but has no fever or focal neurologic deficits a computed tomography scan of the brain with IV contrast will be ordered to evaluate for any infection, patient has no meningeal signs Septic workup was initiated given patient's history of ALLERGY to penicillin vancomycin and Levaquin were ordered Labs reveal leukocytosis otherwise unremarkable CT scan does reveal inflammatory and phlegmon changes in the soft tissues next line patient care was discussed with Dr. Lambert ENT fabrication inspector who recommends patient be admitted to the medicine service, made nothing by mouth with the plan to go to the OR this afternoon for I&D of the septum. Recommends continue treatment thank alxe. Patient care was discussed medicine on-call doctor Lynette who accepts the admission - Lab Data Result diagrams: 07/21/18 03:58 07/21/18 03:58 Lab Results 07/21/18 07/21/18 07/21/18 Range/Units 03:58 03:58 03:58 WBC 11.8 H (3.8-10.6) k/uL RBC 4.90 (4.30-5.90) m/uL Hgb 15.3 (13.0-17.5) gm/dL Hct 45.1 (39.0-53.0) % MCV 92.0 (80.0-100.0) fL MCH 31.2 (25.0-35.0) pg MCHC 33.9 (31.0-37.0) g/dL RDW 13.3 (11.5-15.5) % Plt Count 229 (150-450) k/uL Neutrophils % 75 % Lymphocytes % 15 % Monocytes % 5 % Eosinophils % 3 % Basophils % 1 % Neutrophils # 8.8 H (1.3-7.7) k/uL Lymphocytes # 1.8 (1.0-4.8) k/uL Monocytes # 0.6 (0-1.0) k/uL Eosinophils # 0.4 (0-0.7) k/uL Basophils # 0.1 (0-0.2) k/uL PT (9.0-12.0) sec INR (<1.2) APTT (22.0-30.0) sec Sodium 138 (137-145) mmol/L Potassium 4.3 (3.5-5.1) mmol/L Chloride 100 (98-107) mmol/L Carbon Dioxide 28 (22-30) mmol/L Anion Gap 10 mmol/L BUN 21 H (9-20) mg/dL Creatinine 0.90 (0.66-1.25) mg/dL Est GFR (CKD-EPI)AfAm >90 (>60 ml/min/1.73 sqM) Est GFR (CKD-EPI)NonAf >90 (>60 ml/min/1.73 sqM) Glucose 122 H (74-99) mg/dL Plasma Lactic Acid Jose M 1.1 (0.7-2.0) mmol/L Calcium 9.7 (8.4-10.2) mg/dL Total Bilirubin 1.4 H (0.2-1.3) mg/dL AST 32 (17-59) U/L ALT 48 (21-72) U/L Alkaline Phosphatase 77 (38-126) U/L Total Protein 7.9 (6.3-8.2) g/dL Albumin 4.5 (3.5-5.0) g/dL 07/21/18 Range/Units 03:58 WBC (3.8-10.6) k/uL RBC (4.30-5.90) m/uL Hgb (13.0-17.5) gm/dL Hct (39.0-53.0) % MCV (80.0-100.0) fL MCH (25.0-35.0) pg MCHC (31.0-37.0) g/dL RDW (11.5-15.5) % Plt Count (150-450) k/uL Neutrophils % % Lymphocytes % % Monocytes % % Eosinophils % % Basophils % % Neutrophils # (1.3-7.7) k/uL Lymphocytes # (1.0-4.8) k/uL Monocytes # (0-1.0) k/uL Eosinophils # (0-0.7) k/uL Basophils # (0-0.2) k/uL PT 9.9 (9.0-12.0) sec INR 0.9 (<1.2) APTT 23.9 (22.0-30.0) sec Sodium (137-145) mmol/L Potassium (3.5-5.1) mmol/L Chloride (98-107) mmol/L Carbon Dioxide (22-30) mmol/L Anion Gap mmol/L BUN (9-20) mg/dL Creatinine (0.66-1.25) mg/dL Est GFR (CKD-EPI)AfAm (>60 ml/min/1.73 sqM) Est GFR (CKD-EPI)NonAf (>60 ml/min/1.73 sqM) Glucose (74-99) mg/dL Plasma Lactic Acid Jose M (0.7-2.0) mmol/L Calcium (8.4-10.2) mg/dL Total Bilirubin (0.2-1.3) mg/dL AST (17-59) U/L ALT (21-72) U/L Alkaline Phosphatase (38-126) U/L Total Protein (6.3-8.2) g/dL Albumin (3.5-5.0) g/dL Disposition Clinical Impression: Nasal septal abscess, Facial cellulitis Disposition: ADMITTED IP TO THIS HOSP Is patient prescribed a controlled substance at d/c from ED?: No Referrals: None,Stated [Primary Care Provider] - 1-2 days
[2018-07-21] MEDS ORDERED: MORPHINE SULFATE 4 MG/ML SYRINGE IVP STA (04:05)
[2018-07-21 04:15] LABS: Basophils # (A) 0.1 k/uL (0-0.2); Basophils % (A) 1 %; Eosinophils # (A) 0.4 k/uL (0-0.7); Eosinophils % (A) 3 %; HCT 45.1 % (39.0-53.0); HGB 15.3 gm/dL (13.0-17.5); Lymphocytes # (A) 1.8 k/uL (1.0-4.8); Lymphocytes % (A) 15 %; MCH 31.2 pg (25.0-35.0); MCHC 33.9 g/dL (31.0-37.0); Mean Platelet Volume 7.1; Monocytes # (A) 0.6 k/uL (0-1.0); Monocytes % (A) 5 %; Neutrophils # (A) 8.8 k/uL (1.3-7.7); Neutrophils % (A) 75 %; Platelet Count 229 k/uL (150-450); RDW 13.3 % (11.5-15.5); WBC 11.8 k/uL (3.8-10.6)
[2018-07-21 04:23] LABS: ALT 48 U/L (21-72); AST 32 U/L (17-59); Albumin 4.5 g/dL (3.5-5.0); Alkaline Phosphatase 77 U/L (38-126); Anion Gap 10 mmol/L; Blood Urea Nitrogen 21 mg/dL (9-20); Calcium 9.7 mg/dL (8.4-10.2); Carbon Dioxide 28 mmol/L (22-30); Chloride 100 mmol/L (98-107); Glucose 122 mg/dL (74-99); Potassium 4.3 mmol/L (3.5-5.1); Sodium 138 mmol/L (137-145); Total Bilirubin 1.4 mg/dL (0.2-1.3); Total Protein 7.9 g/dL (6.3-8.2)
[2018-07-21 04:27] LABS: INR 0.9 (<1.2); Partial Thromboplastin Time 23.9 sec (22.0-30.0); Prothrombin Time 9.9 sec (9.0-12.0)
--- NOTE | 2018-07-21 04:43 | CT ---
EXAM: CT Head With Intravenous Contrast CLINICAL HISTORY: septal abscess, headache TECHNIQUE: Axial computed tomography images of the head/brain with intravenous contrast. CTDI is 48 point mGy and DLP is 1502 mGy-cm. This CT exam was performed using one or more of the following dose reduction techniques: automated exposure control, adjustment of the mA and/or kV according to patient size, and/or use of iterative reconstruction technique. COMPARISON: No relevant prior studies available. FINDINGS: Brain: Unremarkable. No hemorrhage. No edema. Normal enhancement. Ventricles: Unremarkable. No ventriculomegaly. Bones/joints: Unremarkable. No acute fracture. Soft tissues: Paranasal sinus inflammatory changes with soft tissue enhancement along the nasal spine and upper lip. However this area is not completely included on the head CT Sinuses: Unremarkable as visualized. No acute sinusitis. Mastoid air cells: Unremarkable as visualized. No mastoid effusion. IMPRESSION: No intracranial abnormality paranasal sinus inflammatory changes abnormal enhancement of the soft tissues anterior to the nasal spine and upper lip however are not completely included in this CT the head. No definite abscess is noted.
--- NOTE | 2018-07-21 04:51 | CT ---
EXAM: CT Maxillofacial Without Intravenous Contrast CLINICAL HISTORY: : septal abscess, facial swelling TECHNIQUE: Axial computed tomography images of the face without intravenous contrast. CTDI is 16.9 mGy and DLP is 351.5 mGy-cm. This CT exam was performed using one or more of the following dose reduction techniques: automated exposure control, adjustment of the mA and/or kV according to patient size, and/or use of iterative reconstruction technique. COMPARISON: No relevant prior studies available. FINDINGS: The study has severe limitations. This study was not performed with IV contrast. . The patient had a CT of the head which was performed with IV contrast but does not include the area of interest on the inferior face. Bones/joints: No acute fracture. Soft tissues: Soft tissue inflammatory changes are noted adjacent to the maxilla and the nasal spine . The nasal septum appears unremarkable There is a phlegmonous appearance to the left side of the face There appears to be some inflammatory changes adjacent to the left mandible however this is not totally included in the study. Orbits: Unremarkable. Sinuses: Air fluid level in the left maxillary sinus mucosal thickening throughout the ethmoid air cells. Mucous retention cyst in the sphenoid sinus. IMPRESSION: Inflammatory changes noted along the midline left side of the face. This may be secondary to periodontal disease this study was performed without IV contrast. Abscess cannot be excluded. Incomplete study of the face. The mandible is not included on this study. Recommend repeat study including the entire face with IV contrast to exclude abscess.
[2018-07-21] MEDS ORDERED: NALOXONE 0.4 MG/ML 1 ML VIAL IV PRN (05:04)
--- NOTE | 2018-07-21 06:44 | P.HPIM ---
History of Present Illness H&P Date: 07/21/18 The patient is a 33-year-old male with a PMH of polysubstance abuse (cocaine, opiates), and depression presented to the ED for 4 days of nasal and facial pain and swelling. The patient notes that he initially noted a sore in his nose around 3-4 days ago which he thought was an ingrown hair. He however gradually noticed worsening swelling and pain of his nose along with left side of his face. He also endorsed occasional headaches 6 out of 10. He otherwise denied visual disturbances, fevers, chills, chest pain, shortness of breath, nausea, vomiting. He also denied abdominal pain, diaphoresis, diarrhea, or dysuria. Patient denied any weakness, numbness, dizziness. The patient notes that he last used amphetamines a few weeks ago, and denied any additional illicit substance use. In the emergency room, the patient underwent a comprehensive workup, with WBC count 11.8, hemoglobin 15, sodium 138, potassium 4.3, creatinine 0.9, and total bilirubin elevated to 1.4. He underwent a brain and face CT which revealed nasal spine, L face, and upper lip inflammation and soft tissue swelling. No discernible abscess was identified. Review of Systems Pertinent positives and negatives as discussed in HPI, a complete review of systems was performed and all other systems are negative. Past Medical History Past Medical History: No Reported History Additional Past Medical History / Comment(s): kidney stones History of Any Multi-Drug Resistant Organisms: MRSA Date of last positivie culture/infection: 2007/MRSA MDRO Source:: left arm Past Surgical History: Orthopedic Surgery Past Psychological History: No Psychological Hx Reported Smoking Status: Current every day smoker Past Alcohol Use History: None Reported, Occasional Past Drug Use History: None Reported, Marijuana, Opiates Medications and Allergies Home Medications Medication Instructions Recorded Confirmed Type Albuterol Nebulized [Ventolin 2.5 mg INHALATION Q4H PRN #25 nebu 06/18/18 Rx Nebulized] Azithromycin [Zithromax Z-pack] 0 mg PO DIRECTED #1 pack 06/18/18 Rx Benzonatate [Tessalon Perles] 100 mg PO TID PRN #15 capsule 06/18/18 Rx predniSONE 50 mg PO DAILY #5 tab 06/18/18 Rx Allergies Allergy/AdvReac Type Severity Reaction Status Date / Time ibuprofen Allergy Unknown Verified 07/21/18 02:51 Penicillins Allergy Unknown Verified 07/21/18 02:51 Physical Exam Vitals: Vital Signs Temp Pulse Resp BP Pulse Ox 07/21/18 06:00 69 10 L 108/61 99 07/21/18 05:30 73 10 L 111/64 97 07/21/18 05:00 75 11 L 111/61 98 07/21/18 04:30 67 11 L 116/65 97 07/21/18 02:48 98.0 F 92 18 157/90 99 Intake and Output 07/20/18 07/20/18 07/21/18 14:59 22:59 06:59 Other: Weight 92.986 kg General: non toxic, no distress, appears at stated age, normal weight Derm: Nasal septum and left facial tenderness and swelling overlying the maxilla , no mandibular tenderness noted Head: atraumatic, normocephalic, symmetric Eyes: EOMI, no lid lag, anicteric sclera, pupils equal round reactive to light ENT: Nose and ears atraumatic, no thrush, no pharyngeal erythema Neck: No thyromegaly, no cervical lymphadenopathy, trachea midline, supple Mouth: no lip lesion, mucus membranes moist Cardiovascular: S1S2 reg, no murmur, positive posterior tibial pulse bilateral, no edema, capillary refill less than 2 seconds Lungs: CTA bilateral, no rhonchi, no rales , no accessory muscle use Abdominal: soft, nontender to palpation, no guarding, no appreciable organomegaly, normal bowel sounds Ext: no gross muscle atrophy, muscle strength 5 out of 5 in all 4 extremities grossly, no contractures, Neuro: CN II-XI grossly intact, light touch intact all 4 extremities, finger to nose within normal limits, Psych: Alert, oriented, appropriate affect Results CBC & Chem 7: 07/21/18 03:58 07/21/18 03:58 Labs: Abnormal Lab Results - Last 24 Hours (Table) 07/21/18 07/21/18 Range/Units 03:58 03:58 WBC 11.8 H (3.8-10.6) k/uL Neutrophils # 8.8 H (1.3-7.7) k/uL BUN 21 H (9-20) mg/dL Glucose 122 H (74-99) mg/dL Total Bilirubin 1.4 H (0.2-1.3) mg/dL Assessment and Plan Plan: Possible nasal septal abscess and left facial cellulitis -ENT consulted, planned for I&D in am -Continue with Levaquin and Vancomycin -Continue with IV fluids -Pain control Elevated blood pressure -Likely secondary to pain -Monitor for now DVT//GI prophylaxis -Heparin -Protonix The patient is admitted with an anticipated greater than 2 midnight stay for evaluation of possible nasal septal abscess. CODE STATUS: Full code Discussed with: Patient Anticipated discharge date: 07/23/[address]: Home A total of 45 minutes was spent on the care of this complex patient more than 50 % of the time was spent in counseling and care coordination.
[2018-07-21 07:06] VITALS: BMI 26.4
--- NOTE | 2018-07-21 09:14 | P.CONS ---
History of Present Illness - Reason for Consult Consult date: 07/21/18 Facial cellulitis rule out need for imipenemmeropenem Vanco - History of Present Illness This is a 33-year-old male who noticed swelling initially to the inside of the tip of his left nares has started at least 4 days ago. It gradually worsened and included swelling into the entire nose, left cheek into the left jaw with left cervical lymph node enlargement. He had chills but no documented fever. He is complaining of severe headache is as involving his face. Patient states that he applied pressure to the side of his nose and cheek and significant amount of greenish discharge was exuded. He has not had any drainage since. He denies any drainage or swelling inside his mouth. He denies any sore throat, difficulty swallowing. Patient does have history of substance abuse and was recently at [facility] from May 31 through to the end of June. He has used IV drugs 2 weeks ago but denies any use or historical use of drugs intranasally. He was recently seen in the ER on June 18 which time he was seen for cough and congestion was placed on a Z- Jigar. He has not been on any antibiotics prior to this admission. Patient came into [facility] emergency center was found to be afebrile, blood pressure 157/90. White count 11.9, creatinine 0.9. Lactic acid 1.1. A CT of the brain showed no intracranial abnormality. Paranasal sinus inflammatory changes abnormal enhancement the soft tissue anterior to the nasal spine and upper lip. No definite abscess is seen. Maxillofacial CT without contrast revealed inflammatory changes along the midline left side of the face. This may be secondary to periodontal disease. Abscess cannot be excluded. Recommend entire face CAT scan with IV contrast to exclude abscess. Patient was given 1 L of IV fluid, morphine for pain, Levaquin and vancomycin and admitted to the [facility] floor and continued on vancomycin. Patient does have history of MRSA abscess on his hand and antecubital areas in the past requiring I&D. Review of Systems All systems: negative Constitutional: Reports chills, Reports fatigue, Reports lethargy, Reports malaise, Denies anorexia, Denies fever, Denies poor appetite, Denies weakness, Denies weight loss Eyes: denies blurred vision, denies pain Ears, nose, mouth and throat: Reports nose pain, Reports sinus pain, Reports sinus pressure, Denies bleeding gums, Denies dental pain, Denies dysphagia, Denies headache, Denies hoarseness, Denies mouth pain, Denies swelling in mouth , Denies swelling in throat, Denies sore throat, Denies vertigo, Denies voice changes Cardiovascular: Denies chest pain, Denies edema, Denies leg edema, Denies lightheadedness, Denies shortness of breath, Denies syncope Respiratory: Denies cough, Denies cough with sputum, Denies dyspnea, Denies excessive sputum, Denies hemoptysis, Denies home oxygen, Denies wheezing Gastrointestinal: Denies abdominal pain, Denies diarrhea, Denies loss of appetite, Denies nausea, Denies vomiting Genitourinary: Denies dysuria Musculoskeletal: Denies frequent falls, Denies muscle weakness, Denies myalgias Integumentary: Reports wounds, Denies pruritus, Denies rash Neurological: Reports headaches, Denies aphasia, Denies burning pain, Denies change in speech, Denies numbness, Denies weakness Psychiatric: Denies anxiety, Denies depression Endocrine: Denies fatigue, Denies weight change Past Medical History Past Medical History: No Reported History Additional Past Medical History / Comment(s): kidney stones History of Any Multi-Drug Resistant Organisms: MRSA Year Discovered:: 2007/MRSA MDRO Source:: left arm Past Surgical History: No Surgical Hx Reported Past Psychological History: No Psychological Hx Reported Smoking Status: Current every day smoker Past Alcohol Use History: None Reported, Occasional Additional Past Alcohol Use History / Comment(s): Patient is a smoker of one pack to one and half packs per day. He denies any alcohol abuse. He does drink alcohol on the weekends. He does have history of marijuana and cocaine use. He denies any intranasal drug use. He admits to IV drug use. He has been at [facility] in the past. Past Drug Use History: None Reported, Marijuana, Opiates - Past Family History Mother History Unknown: Yes Father History Unknown: Yes Medications and Allergies Allergies Allergy/AdvReac Type Severity Reaction Status Date / Time ibuprofen Allergy Unknown Verified 07/21/18 08:17 Penicillins Allergy Unknown Verified 07/21/18 08:17 Physical Exam Vitals: Vital Signs Temp Pulse Pulse Resp BP BP Pulse Ox 07/21/18 07:00 97.7 F 77 14 99/60 99 07/21/18 06:00 69 10 L 108/61 99 07/21/18 05:30 73 10 L 111/64 97 07/21/18 05:00 75 11 L 111/61 98 07/21/18 04:30 67 11 L 116/65 97 07/21/18 02:48 98.0 F 92 18 157/90 99 Intake and Output 07/20/18 07/21/18 07/21/18 22:59 06:59 14:59 Other: Weight 92.986 kg Gen: This is a 33-year-old male. He is sitting up in bed and appears to be comfortable and in no acute distress. HEENT: Head is atraumatic, normocephalic. Pupils equal, round. Sclerae is anicteric. Significant edema to the left nares/nose, left maxilla and upper lip , left mandible, across zygomatic arch. Positive enlarged cervical lymph node left side. Oral mucous membranes are moist. No oropharyngeal erythema or edema. NECK: Supple. No JVD. No thyromegaly. LUNGS: Clear to auscultation. No wheezes or rhonchi. No intercostal retractions. HEART: Regular rate and rhythm. No murmur. ABDOMEN: Soft. Bowel sounds are present. No masses. No tenderness. EXTREMITIES: No pedal edema. No calf tenderness. Dorsalis pedis +2 bilaterally. NEUROLOGICAL: Patient is awake, alert and oriented x3. Cranial nerves 2 through 12 are grossly intact. Results Results: Laboratory Results WBC 11.8 k/uL (3.8-10.6) H 07/21/18 03:58 RBC 4.90 m/uL (4.30-5.90) 07/21/18 03:58 Hgb 15.3 gm/dL (13.0-17.5) 07/21/18 03:58 Hct 45.1 % (39.0-53.0) 07/21/18 03:58 MCV 92.0 fL (80.0-100.0) 07/21/18 03:58 MCH 31.2 pg (25.0-35.0) 07/21/18 03:58 MCHC 33.9 g/dL (31.0-37.0) 07/21/18 03:58 RDW 13.3 % (11.5-15.5) 07/21/18 03:58 Plt Count 229 k/uL (150-450) 07/21/18 03:58 Neutrophils % 75 % 07/21/18 03:58 Lymphocytes % 15 % 07/21/18 03:58 Monocytes % 5 % 07/21/18 03:58 Eosinophils % 3 % 07/21/18 03:58 Basophils % 1 % 07/21/18 03:58 Neutrophils # 8.8 k/uL (1.3-7.7) H 07/21/18 03:58 Lymphocytes # 1.8 k/uL (1.0-4.8) 07/21/18 03:58 Monocytes # 0.6 k/uL (0-1.0) 07/21/18 03:58 Eosinophils # 0.4 k/uL (0-0.7) 07/21/18 03:58 Basophils # 0.1 k/uL (0-0.2) 07/21/18 03:58 PT 9.9 sec (9.0-12.0) 07/21/18 03:58 INR 0.9 (<1.2) 07/21/18 03:58 APTT 23.9 sec (22.0-30.0) 07/21/18 03:58 Sodium 138 mmol/L (137-145) 07/21/18 03:58 Potassium 4.3 mmol/L (3.5-5.1) 07/21/18 03:58 Chloride 100 mmol/L (98-107) 07/21/18 03:58 Carbon Dioxide 28 mmol/L (22-30) 07/21/18 03:58 Anion Gap 10 mmol/L 07/21/18 03:58 BUN 21 mg/dL (9-20) H 07/21/18 03:58 Creatinine 0.90 mg/dL (0.66-1.25) 07/21/18 03:58 Est GFR (CKD-EPI)AfAm >90 (>60 ml/min/1.73 sqM) 07/21/18 03:58 Est GFR (CKD-EPI)NonAf >90 (>60 ml/min/1.73 sqM) 07/21/18 03:58 Glucose 122 mg/dL (74-99) H 07/21/18 03:58 Plasma Lactic Acid Jose M 1.1 mmol/L (0.7-2.0) 07/21/18 03:58 Calcium 9.7 mg/dL (8.4-10.2) 07/21/18 03:58 Total Bilirubin 1.4 mg/dL (0.2-1.3) H 07/21/18 03:58 AST 32 U/L (17-59) 07/21/18 03:58 ALT 48 U/L (21-72) 07/21/18 03:58 Alkaline Phosphatase 77 U/L (38-126) 07/21/18 03:58 Total Protein 7.9 g/dL (6.3-8.2) 07/21/18 03:58 Albumin 4.5 g/dL (3.5-5.0) 07/21/18 03:58 CBC & Chem 7: 07/22/18 07:10 07/22/18 07:20 Labs: Abnormal Lab Results - Last 24 Hours (Table) 07/21/18 07/21/18 Range/Units 03:58 03:58 WBC 11.8 H (3.8-10.6) k/uL Neutrophils # 8.8 H (1.3-7.7) k/uL BUN 21 H (9-20) mg/dL Glucose 122 H (74-99) mg/dL Total Bilirubin 1.4 H (0.2-1.3) mg/dL Assessment and Plan Plan: This is a 33-year-old male who presents to hospital with facial cellulitis and possible nasal septal abscess or periodontal abscess. Patient is currently on vancomycin which will be changed to daptomycin. Patient does have history of MRSA soft tissue and skin abscesses in the past. CAT scan of the facial bones with IV contrast will be ordered. ENT is on consult as well. Patient also has underlying history of substance abuse. Nicotine patch will be added. Continue supportive care. Blood culture is in progress. Further recommendations as patient progresses. The above dictated assessment and findings were discussed with Dr. Cali. The impression and plan of care have been directed as dictated. Samantha Yates nurse practitioner acting as scribe for Dr. Cali.
[2018-07-21] MEDS: MORPHINE SULFATE 2 MG/ML SYRINGE IVP PRN ×2 (09:39→10:01)
[2018-07-21] MEDS: NICOTINE 21MG/24HR PATCH TRANSDERM SCH (09:40)
[2018-07-21] MEDS: MUPIROCIN 2% OINT 22 GM TUBE NASAL SCH ×4 (09:44→20:26)
[2018-07-21] MEDS: SODIUM CHLORIDE 0.9% 1,000 ML IV SCH ×2 (09:45→17:28)
[2018-07-21 09:54] LABS: Blood Urea Nitrogen 18 mg/dL (9-20)
[2018-07-21] MEDS: HEPARIN SODIUM,PORCINE 5,000 UNIT/ML 1 ML VIAL SQ SCH ×2 (09:58→16:36)
[2018-07-21] MEDS: DAPTOmycin 500 MG in SODIUM CHLORIDE 0.9% 50 ML IVPB SCH ×2 (11:18→12:33)
--- NOTE | 2018-07-21 12:13 | CT ---
EXAMINATION TYPE: CT facial bones w con DATE OF EXAM: 07/21/2018 COMPARISON: 07/21/2018 CT facial bones without contrast HISTORY: Left sided facial swelling 2-3 days. Follow up scan from prior CT CT DLP: 454.2 mGycm CONTRAST: 50 mL of Isovue 300 The paranasal sinuses are examined in the axial plane at 2 mm thick sections. Reconstructed images i n the coronal plane were obtained. There is soft tissue swelling over the left inferior cheek. No underlying enhancing abscess is identi fied. Inflammatory changes are within the subcutaneous tissues. Findings are stable from comparison.. There is an air-fluid level within the left maxillary sinus compatible with acute left maxillary sinu sitis. Mucosal thickening is through the bilateral ethmoid air cells. There is a retention cyst wit hin the right sphenoid sinus. There is an air-fluid level within the left frontal sinus suggestive f or left frontal sinusitis. The septum is evaluated. There is septal deviation to the right. Orbits are symmetrical. Intraconal and extraconal fat appears normal. Extraocular muscles are normal. Mild soft tissue swelling is anterior to the left orbit. Mandible and maxilla as visualized appear n ormal. Maxillary spine appears normal. Nasal bones are intact. The ostiomeatal units are obstructed. IMPRESSIONS: 1. No suspicious changes for post septal abscess. 2. Soft tissue swelling right inferior cheek. No underlying abscess is evident. Inflammatory changes are evident with swelling. 3. Air-fluid levels left maxillary sinus, left frontal sinus with mucosal thickening within the ethmo id air cells bilaterally. Correlate for pansinusitis.
[2018-07-21] MEDS ORDERED: VANCOMYCIN 1,500 MG in SODIUM CHLORIDE 0.9% 250 ML IVPB SCH (14:00)
--- NOTE | 2018-07-21 16:06 | P.GSCN ---
History of Present Illness Consult date: 07/21/18 Reason for Consult: Facial swelling Requesting physician: Portillo Rodríguez History of present illness: This patient is a lethargic, disagree able, 33-year-old white male with significant facial swelling. He is not cooperative for a history and I have gotten much of the history from the chart. He was pulling a hair from his nose and developed associated swelling and pain. This extended to the left and left face. He was admitted through the emergency room. Is currently on antibiotics and has infectious disease. I did review the results of the patient's facial computed tomography scan with contrast demonstrating no evidence of abscess. I was originally called as a septal abscess was suspect. But the computed tomography scan films that I reviewed demonstrated swelling to the upper left and left face but no signs of any septal involvement. Review of Systems ROS unobtainable: due to mental status Past Medical History Past Medical History: No Reported History Additional Past Medical History / Comment(s): kidney stones History of Any Multi-Drug Resistant Organisms: MRSA Year Discovered:: 2007/MRSA MDRO Source:: left arm Past Surgical History: No Surgical Hx Reported Past Psychological History: No Psychological Hx Reported Smoking Status: Current every day smoker Past Alcohol Use History: None Reported, Occasional Additional Past Alcohol Use History / Comment(s): Patient is a smoker of one pack to one and half packs per day. He denies any alcohol abuse. He does drink alcohol on the weekends. He does have history of marijuana and cocaine use. He denies any intranasal drug use. He admits to IV drug use. He has been at [facility] in the past. Past Drug Use History: None Reported, Marijuana, Opiates - Past Family History Mother History Unknown: Yes Father History Unknown: Yes Medications and Allergies Allergies Allergy/AdvReac Type Severity Reaction Status Date / Time ibuprofen Allergy Unknown Verified 07/21/18 08:17 Penicillins Allergy Unknown Verified 07/21/18 08:17 Surgical - Exam Osteopathic Statement: *. No significant issues noted on an osteopathic structural exam other than those noted in the History and Physical/Consult. Vital Signs Temp Pulse Resp BP Pulse Ox 98.0 F 92 18 157/90 99 07/21/18 02:48 07/21/18 02:48 07/21/18 02:48 07/21/18 02:48 07/21/18 02:48 - General Patient is lethargic and is disagreeable and refuses complete examination. He tells me that he is having pain and does not want to be touched. Again, he has very disagreeable Results - Labs 07/21/18 03:58 07/21/18 09:30 Abnormal Lab Results - Last 24 Hours (Table) 07/21/18 07/21/18 Range/Units 03:58 03:58 WBC 11.8 H (3.8-10.6) k/uL Neutrophils # 8.8 H (1.3-7.7) k/uL BUN 21 H (9-20) mg/dL Glucose 122 H (74-99) mg/dL Total Bilirubin 1.4 H (0.2-1.3) mg/dL Diabetes panel 07/21/18 07/21/18 Range/Units 03:58 09:30 Sodium 138 (137-145) mmol/L Potassium 4.3 (3.5-5.1) mmol/L Chloride 100 (98-107) mmol/L Carbon Dioxide 28 (22-30) mmol/L BUN 21 H 18 (9-20) mg/dL Creatinine 0.90 0.73 (0.66-1.25) mg/dL Glucose 122 H (74-99) mg/dL Calcium 9.7 (8.4-10.2) mg/dL AST 32 (17-59) U/L ALT 48 (21-72) U/L Alkaline Phosphatase 77 (38-126) U/L Total Protein 7.9 (6.3-8.2) g/dL Albumin 4.5 (3.5-5.0) g/dL Calcium panel 07/21/18 Range/Units 03:58 Calcium 9.7 (8.4-10.2) mg/dL Albumin 4.5 (3.5-5.0) g/dL Pituitary panel 07/21/18 07/21/18 Range/Units 03:58 09:30 Sodium 138 (137-145) mmol/L Potassium 4.3 (3.5-5.1) mmol/L Chloride 100 (98-107) mmol/L Carbon Dioxide 28 (22-30) mmol/L BUN 21 H 18 (9-20) mg/dL Creatinine 0.90 0.73 (0.66-1.25) mg/dL Glucose 122 H (74-99) mg/dL Calcium 9.7 (8.4-10.2) mg/dL Adrenal panel 07/21/18 07/21/18 Range/Units 03:58 09:30 Sodium 138 (137-145) mmol/L Potassium 4.3 (3.5-5.1) mmol/L Chloride 100 (98-107) mmol/L Carbon Dioxide 28 (22-30) mmol/L BUN 21 H 18 (9-20) mg/dL Creatinine 0.90 0.73 (0.66-1.25) mg/dL Glucose 122 H (74-99) mg/dL Calcium 9.7 (8.4-10.2) mg/dL Total Bilirubin 1.4 H (0.2-1.3) mg/dL AST 32 (17-59) U/L ALT 48 (21-72) U/L Alkaline Phosphatase 77 (38-126) U/L Total Protein 7.9 (6.3-8.2) g/dL Albumin 4.5 (3.5-5.0) g/dL Assessment and Plan Plan: Computed tomography scan evaluation demonstrates no signs of abscess. Since there is no evidence of abscess, no surgical intervention is necessary in this patient can be treated with IV antibiotics and medical therapy. If there is a change in the patient's condition requiring abscess drainage. Please do not hesitate to reconsult me. Time with Patient: Less than 30
--- NOTE | 2018-07-21 16:22 | P.PN ---
Progress Note - Text Progress Note Date: 07/21/18 Please refer to the history and physical for full note. 33-year-old male with PMH of polysubstance abuse, depression presents the ED for nasal and facial pain along with swelling. Patient initially had a leukocytosis of 11.8 but was afebrile. He does have a history of opiate and cocaine abuse. Patient underwent CT of the face and brain without contrast which showed inflammation and soft tissue swelling without any discernible abscess being identified. He was initially started on vancomycin and Levaquin IV and infectious disease along with ENT was consulted. Infectious disease recommended CT of the face with contrast which showed no nasal abscess and soft tissue swelling along with para-sinusitis. His antibiotics were discontinued and escalated to daptomycin IV for coverage of MRSA. ENT was consulted and recommended no surgical intervention due to the fact that there is no identifiable abscess. Patient was seen and examined around 4:00 PM. No acute events overnight. Patient reports intense facial pain, 11 out of 10 in severity , untouched with current morphine dose. He denies any difficulty swallowing or difficulty breathing. He denies any fever or chills. We will continue treatment with IV daptomycin. Change pain control from morphine to Dilaudid 1 mg IV every 4 hours as needed for severe pain. Tylenol as needed for fever. Continue normal saline at 100 mL/h. We will follow-up blood cultures and infectious disease recommendations. Patient is pending clinical improvement.
--- NOTE | 2018-07-21 17:01 | P.CON ---
Consult Note - . Consult date: 07/21/18 Assessment/Plan:: This is a 33-year-old male who noticed swelling initially to the inside of the tip of his left nares has started at least 4 days ago. It gradually worsened and included swelling into the entire nose, left cheek into the left jaw with left cervical lymph node enlargement. He had chills but no documented fever. He is complaining of severe headache is as involving his face. Patient states that he applied pressure to the side of his nose and cheek and significant amount of greenish discharge was exuded. He has not had any drainage since. He denies any drainage or swelling inside his mouth. He denies any sore throat, difficulty swallowing. Patient does have history of substance abuse and was recently at [facility] from May 31 through to the end of June. He has used IV drugs 2 weeks ago but denies any use or historical use of drugs intranasally. He was recently seen in the ER on June 18 which time he was seen for cough and congestion was placed on a Z- Jigar. He has not been on any antibiotics prior to this admission. Patient came into [facility] emergency center was found to be afebrile, blood pressure 157/90. White count 11.9, creatinine 0.9. Lactic acid 1.1. A CT of the brain showed no intracranial abnormality. Paranasal sinus inflammatory changes abnormal enhancement the soft tissue anterior to the nasal spine and upper lip. No definite abscess is seen. Maxillofacial CT without contrast revealed inflammatory changes along the midline left side of the face. This may be secondary to periodontal disease. Abscess cannot be excluded. Recommend entire face CAT scan with IV contrast to exclude abscess. Patient was given 1 L of IV fluid, morphine for pain, Levaquin and vancomycin [facility] and continued on vancomycin. Patient does have history of MRSA abscess on his hand and antecubital areas in the past requiring I&D. Please see the consult note is dictated by nurse practitioner Mrs. Samantha Yates. As noted on the exam the patient has somewhat exquisite tenderness to the left nare, which extends onto the left frontal sinus area. There is some minimal erythema to the area. There is no evidence of any paralysis related to specific and swelling. There is no extension of the swelling to the periorbital area. There was no oral thrush or pharyngeal disease. At this time the patient appears to have a significant facial cellulitis with significant swelling and sinusitis is noted by the computed tomography scan. We 'll add in several doses of Solu-Medrol in addition to antimicrobial therapy targeted against MRSA with daptomycin as well as ceftriaxone for pathogens, and for sinusitis. Will expect marked improvement within 24 hours with this treatment regimen. Cultures are process of the blood but there was nothing drainable from the sinus or nose at this point in time. I agree with evaluation , assessment and plan as dictated by nurse practitioner Mrs. Samantha Yates.
[2018-07-21] MEDS: methylPREDNISolone SOD SUCCI 125 MG/2 ML VIAL IV SCH ×2 (17:21→23:36)
[2018-07-21] MEDS: HYDROmorphone 1 MG/ML 1 ML SYRINGE IVP PRN ×3 (17:23→23:43)
[2018-07-21 21:35] VITALS: RESP 16
[2018-07-22] MEDS: HEPARIN SODIUM,PORCINE 5,000 UNIT/ML 1 ML VIAL SQ SCH ×3 (00:52→17:22)
[2018-07-22] MEDS: methylPREDNISolone SOD SUCCI 125 MG/2 ML VIAL IV SCH ×2 (05:41→11:14)
[2018-07-22] MEDS: HYDROmorphone 1 MG/ML 1 ML SYRINGE IVP PRN ×4 (05:41→17:20)
[2018-07-22] MEDS: SODIUM CHLORIDE 0.9% 1,000 ML IV SCH ×3 (05:52→22:57)
[2018-07-22] MEDS: MUPIROCIN 2% OINT 22 GM TUBE NASAL SCH ×3 (07:54→20:35)
[2018-07-22] MEDS: NICOTINE 21MG/24HR PATCH TRANSDERM SCH (07:59)
[2018-07-22 08:08] LABS: HCT 46.6 % (39.0-53.0); HGB 14.7 gm/dL (13.0-17.5); MCH 30.3 pg (25.0-35.0); MCHC 31.5 g/dL (31.0-37.0); Mean Platelet Volume 8.4; Platelet Count 200 k/uL (150-450); RBC 4.86 m/uL (4.30-5.90); RDW 13.4 % (11.5-15.5); WBC 7.7 k/uL (3.8-10.6)
[2018-07-22 08:38] LABS: ALT 41 U/L (21-72); AST 18 U/L (17-59); Albumin 3.9 g/dL (3.5-5.0); Alkaline Phosphatase 58 U/L (38-126); Anion Gap 7 mmol/L; Blood Urea Nitrogen 12 mg/dL (9-20); Calcium 9.5 mg/dL (8.4-10.2); Carbon Dioxide 25 mmol/L (22-30); Chloride 108 mmol/L (98-107); Glucose 154 mg/dL (74-99); Potassium 4.8 mmol/L (3.5-5.1); Sodium 140 mmol/L (137-145); Total Bilirubin 0.5 mg/dL (0.2-1.3); Total Protein 6.9 g/dL (6.3-8.2)
[2018-07-22] MEDS: DAPTOmycin 500 MG in SODIUM CHLORIDE 0.9% 50 ML IVPB SCH (09:31)
[2018-07-22] MEDS ORDERED: VANCOMYCIN TROUGH DUE 1 EACH MISC MISCELLANE ONE (13:00)
--- NOTE | 2018-07-22 18:05 | P.PN ---
Subjective Progress Note Date: 07/22/18 Patient seen and examined at bedside [place] comfortably reports his pain is controlled does report a history of narcotic dependence currently on IV Dilaudid , reports left-sided greater than right in regards to his pain. No acute events overnight Objective - Vital Signs Vital signs: Vital Signs Temp 99.0 F 07/22/18 14:15 Pulse 101 H 07/22/18 14:15 Resp 16 07/22/18 14:15 BP 122/70 07/22/18 14:15 Pulse Ox 100 07/22/18 14:15 Intake & Output 07/21/18 07/22/18 07/22/18 18:59 06:59 18:59 Intake Total 1450 900 118 Balance 1450 900 118 Intake: IV 850 DAPTOmycin 500 mg In 50 Sodium Chloride 0.9% 50 ml @ 100 mls/hr IVPB Q24H EVER Rx#:[id number] Sodium Chloride 0.9% 1, 800 000 ml @ 100 mls/hr IV . Q10H EVER Rx#:[id number] Intake, IV Titration 900 Amount Sodium Chloride 0.9% 1, 900 000 ml @ 100 mls/hr IV . Q10H EVER Rx#:[id number] Oral 600 118 Other: Voiding Method Toilet Toilet # Voids 3 2 - Exam Constitutional: No acute distress, conversant, pleasant Eyes: Anicteric sclerae, moist conjunctiva, no lid-lag, PERRLA ENMT: Marginal improvement of the left near nostril swelling, left maxilla upper lip and mandible Neck:Supple, FROM, no masses, or JVD, No carotid bruits; No thyromegaly Lungs: Clear to auscultation, Clear to percussion, Normal respiratory effort, no accessory muscle use Cardiovascular: Heart regular in rate and rhythm, No murmurs, gallops, or rubs no peripheral edema Abdominal: Soft Nontender, nom distended, no guarding, no rebound or rigidity, Normoactive bowel sounds No hepatomegaly, No splenomegaly, No palpable mass No abdominal wall hernia noted Skin: Normal temperature, tone, texture, turgor, No induration No subcutaneous nodules, No rash, lesions, No ulcers Extremities:No digital cyanosis No clubbing, Pedal pulses intact and symmetrical Radial pulses intact and symmetrical Normal gait and station, No calf tenderness Psychiatric: Alert and oriented to person, place and time, Appropriate affect Intact judgement Neuro: Muscles Strength 5/5 in all 4 extremities, Sensation to light touch grossly present throughout, Cranial nerves II-XII grossly intact. No focal sensory deficits - Labs CBC & Chem 7: 07/22/18 07:10 07/22/18 07:20 Labs: Abnormal Lab Results - Last 24 Hours (Table) 07/22/18 Range/Units 07:20 Chloride 108 H (98-107) mmol/L Creatinine 0.63 L (0.66-1.25) mg/dL Glucose 154 H (74-99) mg/dL Microbiology - Last 24 Hours (Table) 07/21/18 03:58 Blood Culture - Preliminary Blood No Growth after 24 hours Assessment and Plan (1) Facial cellulitis Narrative/Plan: * Maxillofacial CT confirming inflammatory changes along the midline of the left side of the face possibly associated with periodontal disease * Appreciate ID recommendations * Continue IV daptomycin and ceftriaxone * Patient afebrile leukocytosis has resolved Status: Acute Code(s): L03.211 - CELLULITIS OF FACE SNOMED Code(s): 079264179 (2) Acute frontal sinusitis Narrative/Plan: * Treatment plan As above Status: Acute Code(s): J01.10 - ACUTE FRONTAL SINUSITIS, UNSPECIFIED SNOMED Code(s): 78733785
[2018-07-22] MEDS: oxyCODONE-APAP 5-325MG 1 EACH TAB PO PRN (21:13)
--- NOTE | 2018-07-22 22:06 | P.PN ---
Subjective Progress Note Date: 07/22/18 This is a 33-year-old male who noticed swelling initially to the inside of the tip of his left nares has started at least 4 days ago. It gradually worsened and included swelling into the entire nose, left cheek into the left jaw with left cervical lymph node enlargement. He had chills but no documented fever. He is complaining of severe headache is as involving his face. Patient states that he applied pressure to the side of his nose and cheek and significant amount of greenish discharge was exuded. He has not had any drainage since. He denies any drainage or swelling inside his mouth. He denies any sore throat, difficulty swallowing. Patient does have history of substance abuse and was recently at [facility] from May 31 through to the end of June. He has used IV drugs 2 weeks ago but denies any use or historical use of drugs intranasally. He was recently seen in the ER on June 18 which time he was seen for cough and congestion was placed on a Z- Jigar. He has not been on any antibiotics prior to this admission. Patient came into [facility] emergency center was found to be afebrile, blood pressure 157/90. White count 11.9, creatinine 0.9. Lactic acid 1.1. A CT of the brain showed no intracranial abnormality. Paranasal sinus inflammatory changes abnormal enhancement the soft tissue anterior to the nasal spine and upper lip. No definite abscess is seen. Maxillofacial CT without contrast revealed inflammatory changes along the midline left side of the face. This may be secondary to periodontal disease. Abscess cannot be excluded. Recommend entire face CAT scan with IV contrast to exclude abscess. Patient was given 1 L of IV fluid, morphine for pain, Levaquin and vancomycin and [facility] and continued on vancomycin. Patient does have history of MRSA abscess on his hand and antecubital areas in the past requiring I&D. 07/22/2018 the patient is now resting very comfortably. Appears to have achieved at least some pain control that was not achieved yesterday. Although the nursing staff relates that he is still complaining quite a bit about pain at times. Objective - Vital Signs Vital signs: Vital Signs Temp 98.7 F 07/22/18 18:57 Pulse 115 H 07/22/18 18:57 Resp 16 07/22/18 18:57 BP 122/67 07/22/18 18:57 Pulse Ox 96 07/22/18 18:57 Intake & Output 07/22/18 07/22/18 07/23/18 06:59 18:59 06:59 Intake Total 900 118 Balance 900 118 Intake: Intake, IV Titration 900 Amount Sodium Chloride 0.9% 1, 900 000 ml @ 100 mls/hr IV . Q10H EVER Rx#:[id number] Oral 118 Other: Voiding Method Toilet Toilet # Voids 3 2 - Exam Gen: This is a 33-year-old male.of a thin build He is sitting up in bed and appears to be comfortable and in no acute distress. HEENT: Head is atraumatic, normocephalic. Pupils equal, round. Sclerae is anicteric. there is no improvement to the edema to the left nares/nose, left maxilla and upper lip, left mandible, across zygomatic arch. enlarged lymph nodes improving Oral mucous membranes are moist. No oropharyngeal erythema or edema.no drooling NECK: Supple. No JVD. No thyromegaly. LUNGS: Clear to auscultation. No wheezes or rhonchi. No intercostal retractions. HEART: Regular rate and rhythm. No murmur. ABDOMEN: Soft. Bowel sounds are present. No masses. No tenderness. EXTREMITIES: No pedal edema. No calf tenderness. Dorsalis pedis +2 bilaterally. NEUROLOGICAL: Patient is awake, alert and oriented x3 rest the skin shows evidence of the many tattoos none of them appear to be problematic - Labs CBC & Chem 7: 07/22/18 07:10 07/22/18 07:20 Labs: Abnormal Lab Results - Last 24 Hours (Table) 07/22/18 Range/Units 07:20 Chloride 108 H (98-107) mmol/L Creatinine 0.63 L (0.66-1.25) mg/dL Glucose 154 H (74-99) mg/dL Microbiology - Last 24 Hours (Table) 07/21/18 03:58 Blood Culture - Preliminary Blood No Growth after 24 hours Laboratory Results WBC 7.7 k/uL (3.8-10.6) 07/22/18 07:10 RBC 4.86 m/uL (4.30-5.90) 07/22/18 07:10 Hgb 14.7 gm/dL (13.0-17.5) 07/22/18 07:10 Hct 46.6 % (39.0-53.0) 07/22/18 07:10 MCV 96.0 fL (80.0-100.0) 07/22/18 07:10 MCH 30.3 pg (25.0-35.0) 07/22/18 07:10 MCHC 31.5 g/dL (31.0-37.0) 07/22/18 07:10 RDW 13.4 % (11.5-15.5) 07/22/18 07:10 Plt Count 200 k/uL (150-450) 07/22/18 07:10 Neutrophils % 75 % 07/21/18 03:58 Lymphocytes % 15 % 07/21/18 03:58 Monocytes % 5 % 07/21/18 03:58 Eosinophils % 3 % 07/21/18 03:58 Basophils % 1 % 07/21/18 03:58 Neutrophils # 8.8 k/uL (1.3-7.7) H 07/21/18 03:58 Lymphocytes # 1.8 k/uL (1.0-4.8) 07/21/18 03:58 Monocytes # 0.6 k/uL (0-1.0) 07/21/18 03:58 Eosinophils # 0.4 k/uL (0-0.7) 07/21/18 03:58 Basophils # 0.1 k/uL (0-0.2) 07/21/18 03:58 PT 9.9 sec (9.0-12.0) 07/21/18 03:58 INR 0.9 (<1.2) 07/21/18 03:58 APTT 23.9 sec (22.0-30.0) 07/21/18 03:58 Sodium 140 mmol/L (137-145) 07/22/18 07:20 Potassium 4.8 mmol/L (3.5-5.1) 07/22/18 07:20 Chloride 108 mmol/L (98-107) H 07/22/18 07:20 Carbon Dioxide 25 mmol/L (22-30) 07/22/18 07:20 Anion Gap 7 mmol/L 07/22/18 07:20 BUN 12 mg/dL (9-20) 07/22/18 07:20 Creatinine 0.63 mg/dL (0.66-1.25) L 07/22/18 07:20 Est GFR (CKD-EPI)AfAm >90 (>60 ml/min/1.73 sqM) 07/22/18 07:20 Est GFR (CKD-EPI)NonAf >90 (>60 ml/min/1.73 sqM) 07/22/18 07:20 Glucose 154 mg/dL (74-99) H 07/22/18 07:20 Plasma Lactic Acid Jose M 1.1 mmol/L (0.7-2.0) 07/21/18 03:58 Calcium 9.5 mg/dL (8.4-10.2) 07/22/18 07:20 Total Bilirubin 0.5 mg/dL (0.2-1.3) 07/22/18 07:20 AST 18 U/L (17-59) 07/22/18 07:20 ALT 41 U/L (21-72) 07/22/18 07:20 Alkaline Phosphatase 58 U/L (38-126) 07/22/18 07:20 Total Protein 6.9 g/dL (6.3-8.2) 07/22/18 07:20 Albumin 3.9 g/dL (3.5-5.0) 07/22/18 07:20 Microbiology 07/21/18 03:58 Blood Blood Culture - Preliminary No Growth after 24 hours Assessment and Plan (1) Acute frontal sinusitis Current Visit: Yes Status: Acute Code(s): J01.10 - ACUTE FRONTAL SINUSITIS, UNSPECIFIED SNOMED Code(s): 28107876 (2) Facial cellulitis Narrative/Plan: 33 -year-old male who has a history of recreational drug use presents to Hospital with significant pain and swelling to his nose is resulted in a significant sinusitis as well as facial cellulitis. Has been seen by surgery with no evidence of any abscess requiring surgical intervention. He is being treated with a short course of steroid therapy which is allowed a marked reduction in the swelling to the left side of the face. Pain control is improved overall. He is able to get some rest now. Overall have further improvement by the morning at which point in time antibiotic therapy can be transitioned to oral clindamycin to complete 7 further days of therapy. Current Visit: Yes Status: Acute Code(s): L03.211 - CELLULITIS OF FACE SNOMED Code(s): 986950187
[2018-07-22] MEDS ORDERED: CALCIUM CARBONATE 500 MG CHEWABLE PO PRN (22:42)
[2018-07-23] MEDS: HEPARIN SODIUM,PORCINE 5,000 UNIT/ML 1 ML VIAL SQ SCH ×2 (01:46→08:38)
[2018-07-23] MEDS: oxyCODONE-APAP 5-325MG 1 EACH TAB PO PRN (08:36)
[2018-07-23] MEDS: NICOTINE 21MG/24HR PATCH TRANSDERM SCH (08:36)
[2018-07-23 08:52] VITALS: BP 142/82; PULSE 93; TEMP 98.4
--- NOTE | 2018-07-23 11:02 | P.DS ---
Providers Date of admission: 07/21/18 05:07 Expected date of discharge: 07/23/18 Attending physician: Marcos Ojeda MD Consults: 07/21/18 05:04 Consult Physician Stat Consulting Provider: Mike Boyd Consult Reason/Comments: septal abscess Do you want consulting provider notified?: Already Contacted 07/21/18 07:20 Consult Physician Routine Consulting Provider: Naren Cali Consult Reason/Comments: facial cellulitis rule out need for imipenem- meropenem plus vanco Do you want consulting provider notified?: Yes Primary care physician: Stated None - Discharge Diagnosis(es) (1) Facial cellulitis Status: Acute (2) Acute frontal sinusitis Status: Acute Hospital Course: The patient is a 33-year-old male with a past medical history of polysubstance abuse with cocaine opiates and methamphetamine that was admitted with left facial cellulitis and concern for nasal septal abscess After presenting with complaints of 4 days of nasal and facial pain and swelling. The CT of the head showed no intracranial abnormality, noted paranasal sinus inflammatory changes abnormal enhancement in the soft tissue anterior to the nasal spine and upper lip with no definite abscess seen, subsequent maxillofacial CT showed inflammatory changes along the midline of the left side of the face possibly secondary to periodontal disease. The patient was started on empiric IV antibiotics with Levaquin and vancomycin given a history of previous MRSA abscess of his hand and antecubital area previously requiring I& D. Due to concern for nasal septal abscess a facial CT was done that showed no evidence of abscess or septal involvement. The patient was placed on fluids along with supportive therapy with morphine for pain, infectious diseases was consulted and antibiotic regimen was changed to daptomycin and ceftriaxone in addition to IV Solu-Medrol for the swelling. With treatment the patient's facial cellulitis and swelling improved dramatically and he was subsequently cleared for discharge home on clindamycin to continue for another 7 days. This discharge process took approximately 35 minutes. Focused exam ENT: Improvement of the swelling and erythema around the left knee or left maxilla upper lip left mandible Plan - Discharge Summary New Discharge Prescriptions: New Clindamycin HCl [Cleocin] 300 mg PO Q6HR #28 cap Discharge Medication List Clindamycin HCl [Cleocin] 300 mg PO Q6HR #28 cap 07/23/18 [Rx] Follow up Appointment(s)/Referral(s): None,Stated [Primary Care Provider] - 1-2 days Activity/Diet/Wound Care/Special Instructions: Will need cab ride to [address] when discharged. Discharge Disposition: HOME SELF-CARE
== END 2018-07-23 10:06 | disposition home or self-care (01) | DRG 603 ==
LOC: EC 02:22 → 4SSUR 05:07
PROVIDERS: ADMIT Internal Medicine; ATTEND Internal Medicine
DX: L03.211 Cellulitis of face (principal); Z86.14 Personal history of Methicillin resistant Staphylococcus aureus infection; F17.210 Nicotine dependence, cigarettes, uncomplicated; J01.10 Acute frontal sinusitis, unspecified; K08.89 Other specified disorders of teeth and supporting structures; Z87.442 Personal history of urinary calculi; Z88.6 Allergy status to analgesic agent; Z88.0 Allergy status to penicillin; F14.10 Cocaine abuse, uncomplicated; F15.10 Other stimulant abuse, uncomplicated; F11.10 Opioid abuse, uncomplicated; R03.0 Elevated blood-pressure reading, without diagnosis of hypertension
CPT/HCPCS: 36415; 70460; 70486; 70487; 80053; 82565; 83605; 84520; 85025; 85027; 85610; 85730; 87040; 96361; 96365; 96366; 96375; 99284

== ENCOUNTER 2019-01-05 13:44 | Emergency (ER) | payer OTHER ==
[2019-01-05 13:49] VITALS: RESP 18; TEMP 97.9
[2019-01-05] MEDS ORDERED: KETOROLAC 30 MG/ML 1 ML VIAL IVP STA ×2 (14:34→14:40)
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
--- NOTE | 2019-01-05 14:47 | XR ---
EXAMINATION TYPE: XR shoulder complete LT DATE OF EXAM: 01/05/2019 CLINICAL HISTORY: Left-sided pain. TECHNIQUE: Three views of the left shoulder are obtained. COMPARISON: None. FINDINGS: There is no acute fracture/dislocation evident in the left shoulder. Moderate narrowing of acromioclavicular joint is present. Distal acromion morphology is unremarkable. Glenohumeral joint is maintained. The visualized ribs are intact and unremarkable. IMPRESSION: As above.
--- NOTE | 2019-01-05 14:48 | XR ---
EXAMINATION TYPE: XR chest 2V DATE OF EXAM: 01/05/2019 COMPARISON: 06/18/2018 TECHNIQUE: PA and lateral views submitted. HISTORY: Pain FINDINGS: The lungs are clear and there is no pneumothorax, pleural effusion, or focal pneumonia. No overt fa ilure. IMPRESSION: 1. No acute process.
[2019-01-05 15:30] LABS: Basophils % (A) 0 %; Eosinophils # (A) 0.1 k/uL (0-0.7); Eosinophils % (A) 1 %; HCT 42.1 % (39.0-53.0); HGB 14.3 gm/dL (13.0-17.5); Lymphocytes # (A) 1.2 k/uL (1.0-4.8); Lymphocytes % (A) 16 %; MCHC 33.9 g/dL (31.0-37.0); MCV 91.3 fL (80.0-100.0); Mean Platelet Volume 7.3; Monocytes # (A) 0.6 k/uL (0-1.0); Monocytes % (A) 8 %; Neutrophils # (A) 5.3 k/uL (1.3-7.7); Neutrophils % (A) 71 %; Platelet Count 187 k/uL (150-450); RBC 4.61 m/uL (4.30-5.90); RDW 13.4 % (11.5-15.5); WBC 7.4 k/uL (3.8-10.6)
--- NOTE | 2019-01-05 16:21 | CT ---
EXAMINATION TYPE: CT chest angio for PE DATE OF EXAM: 01/05/2019 COMPARISON: NONE HISTORY: sharp chest pain/sob CT DLP: 358.9 mGycm. Automated Exposure Control for Dose Reduction was Utilized. CONTRAST: CTA scan of the thorax is performed with IV Contrast, patient injected with 100 mL of Isovue 370, pul monary embolism protocol. MIP Images are created on CT scanner and reviewed. FINDINGS: Motion artifact degradation is seen making evaluation suboptimal particularly for subcentim eter nodularity. LUNGS: There is suggestion of some diffuse groundglass opacity bilaterally though this may be exagger ated by motion suggesting perhaps mild alveolar edema. No suspicious focal consolidation. No pleural effusion or pneumothorax. MEDIASTINUM: There is suboptimal bolus with near equal contrast in the right and left heart system. N o obvious large saddle pulmonary embolism. Cannot exclude smaller lobar, segmental, or subsegmental P E on this study. There are no greater than 1 cm hilar or mediastinal lymph nodes. No cardiomegaly o r pericardial effusion is seen. OTHER: No additional significant abnormality is seen. IMPRESSION: Suboptimal study.
[2019-01-05] MEDS ORDERED: CYCLOBENZAPRINE 10MG STARTER 3 TAB BTL PO STA (16:46)
[2019-01-05 16:58] VITALS: BP 134/87; PULSE 87
== END 2019-01-05 16:58 | disposition home or self-care (01) ==
LOC: EC 13:44
DX: M25.512 Pain in left shoulder (principal); R07.89 Other chest pain; R79.1 Abnormal coagulation profile; F19.11 Other psychoactive substance abuse, in remission; F17.200 Nicotine dependence, unspecified, uncomplicated; Z88.0 Allergy status to penicillin; Z88.6 Allergy status to analgesic agent; Z86.14 Personal history of Methicillin resistant Staphylococcus aureus infection; Z86.718 Personal history of other venous thrombosis and embolism; W50.0XXA Accidental hit or strike by another person, initial encounter
CPT/HCPCS: 36415; 85379; 85025; 73030; 71046; 71275; 99285; 96374; J1885; Q9967

== ENCOUNTER 2019-01-08 00:37 | Emergency (ER) | payer OTHER ==
[2019-01-08 00:50] VITALS: BP 129/78; PULSE 99; RESP 20; TEMP 99.3
--- NOTE | 2019-01-08 02:00 | ED ---
General Adult HPI - General Chief complaint: Extremity Problem,Nontraumatic Stated complaint: Chest Pain Time Seen by Provider: 01/08/19 01:03 Source: patient Mode of arrival: ambulatory Limitations: no limitations - History of Present Illness Initial comments: Patient eloped prior to physician evaluation. - Related Data Home Medications Medication Instructions Recorded Confirmed No Known Home Medications 01/08/19 01/08/19 Allergies Allergy/AdvReac Type Severity Reaction Status Date / Time ibuprofen Allergy Unknown Verified 01/05/19 14:38 Penicillins Allergy Unknown Verified 01/05/19 14:38 Review of Systems ROS Statement: Those systems with pertinent positive or pertinent negative responses have been documented in the HPI. ROS Other: All systems not noted in ROS Statement are negative. Past Medical History Past Medical History: No Reported History Additional Past Medical History / Comment(s): kidney stones History of Any Multi-Drug Resistant Organisms: MRSA Date of last positivie culture/infection: 2007/MRSA MDRO Source:: left arm Past Surgical History: No Surgical Hx Reported Past Psychological History: No Psychological Hx Reported Smoking Status: Current every day smoker Past Alcohol Use History: None Reported, Occasional Past Drug Use History: Heroin, Marijuana, Methamphetamine, Opiates - Past Family History Mother History Unknown: Yes Father History Unknown: Yes General Exam Limitations: no limitations Course Vital Signs 01/08/19 00:46 Temperature 99.3 F Pulse Rate 99 Respiratory 20 Rate Blood Pressure 129/78 O2 Sat by Pulse 100 Oximetry Disposition Clinical Impression: Chest pain Disposition: Left Against Medical Advice Referrals: None,Stated [Primary Care Provider] - 1-2 days
== END 2019-01-08 02:05 | disposition left against medical advice (07) ==
LOC: EC 00:37
DX: R07.9 Chest pain, unspecified (principal); F17.200 Nicotine dependence, unspecified, uncomplicated; Z86.14 Personal history of Methicillin resistant Staphylococcus aureus infection; Z88.6 Allergy status to analgesic agent; Z88.0 Allergy status to penicillin; Z53.21 Procedure and treatment not carried out due to patient leaving prior to being seen by health care provider
CPT/HCPCS: 99499

== ENCOUNTER 2019-01-08 04:09 | Inpatient (IN) | payer OTHER ==
[2019-01-08] MEDS ORDERED: MORPHINE SULFATE 4 MG/ML SYRINGE IVP STA ×2 (04:35→13:53)
--- NOTE | 2019-01-08 04:39 | ED ---
General Adult HPI - General Chief complaint: Extremity Problem,Nontraumatic Stated complaint: chest/arm pain Time Seen by Provider: 01/08/19 04:28 Source: patient Mode of arrival: ambulatory Limitations: no limitations - History of Present Illness Initial comments: Dictation was produced using [employer] dictation software. please excuse any grammatical, word or spelling errors. Chief Complaint: 33-year-old IV drug abuser presents with left upper extremity pain. History of Present Illness: Patient's 33-year-old IV drug abuser. He was seen here in emergency department 3 days ago for the same complaint. Patient states that over the last 3-4 days he's been having worsening left upper extremity pain and left chest pain. Patient's IV drug abuser. He states he uses drugs every day. He admits to not always using clean equipment. He frequently injects illicit drugs to his left forearm. She states the symptoms began in his left forearm area and then spread upward to his left chest. Patient has any shortness of breath. Does complain of significant tenderness to his arm. Denies any constitutional symptoms at this time. Patient was seen earlier in our emergency department however he eloped. He returned to the emergency department. Patient has any other medical problems. The ROS documented in this emergency department record has been reviewed and confirmed by me. Those systems with pertinent positive or negative responses have been documented in the HPI. All other systems are other negative and/or n oncontributory. PHYSICAL EXAM: General Impression: Alert and oriented x3, not in acute distress HEENT: Normocephalic atraumatic, extra-ocular movements intact, pupils equal and reactive to light bilaterally, mucous membranes moist. Cardiovascular: Heart regular rate and rhythm, S1&S2 audible, no murmurs, rubs or gallops Chest: Lungs clear to auscultation bilaterally, no rhonchi, no wheeze, no rales Abdomen: Bowel sounds present, abdomen soft, non-tender, non-distended, no organomegaly Musculoskeletal: Pulses present and equal in all extremities, no peripheral edema Motor: no focal deficits noted Neurological: CN II-XII grossly intact, no focal motor or sensory deficits noted Skin: Swollen erythematous left upper extremity. There is palpable cord in the left anterior forearm. Diffuse tenderness to palpation of the entire left upper extremity Psych: Normal affect and mood ED course: 33-year-old male presents with left upper extremity pain. Vital signs upon arrival shows temperature 99.6, rest of vital signs within acceptable limits. There is concern that patient's left upper shotty symptoms are secondary to infection given that patient is a regular IV drug abuser. Patient was seen 3 days ago and had a CTA with pulmonary embolism protocol. It was a technically suboptimal study.Laboratory evaluation obtained. CBC, metabolic panel is grossly unremarkable. Based off her study was obtained showing superficial echogenic thrombus in the left anterior forearm. Patient complains of increasing pain in the left upper extremity with worsening erythema. There is concern that this may represent septic thrombophlebitis given history of IV drug abuse and worsening symptoms. Patient is currently homeless and doesn't have any money. There is concern that patient would not be able to manage this on an outpatient basis. Patient given vancomycin and admitted to the hospital. Pending blood cultures. - Related Data Home Medications Medication Instructions Recorded Confirmed No Known Home Medications 01/08/19 01/08/19 Allergies Allergy/AdvReac Type Severity Reaction Status Date / Time ibuprofen Allergy Unknown Verified 01/05/19 14:38 Penicillins Allergy Unknown Verified 01/05/19 14:38 Review of Systems ROS Statement: Those systems with pertinent positive or pertinent negative responses have been documented in the HPI. ROS Other: All systems not noted in ROS Statement are negative. Past Medical History Past Medical History: No Reported History Additional Past Medical History / Comment(s): kidney stones History of Any Multi-Drug Resistant Organisms: MRSA Date of last positivie culture/infection: 2007/MRSA MDRO Source:: left arm Past Surgical History: No Surgical Hx Reported Past Psychological History: No Psychological Hx Reported Smoking Status: Current every day smoker Past Alcohol Use History: None Reported, Occasional Past Drug Use History: Heroin, Marijuana, Methamphetamine, Opiates - Past Family History Mother History Unknown: Yes Father History Unknown: Yes General Exam Limitations: no limitations Course Vital Signs 01/08/19 04:17 Temperature 99.6 F Pulse Rate 99 Respiratory 20 Rate Blood Pressure 125/77 O2 Sat by Pulse 99 Oximetry Medical Decision Making - Lab Data Result diagrams: 01/08/19 06:04 01/08/19 06:04 Lab Results 01/08/19 01/08/19 Range/Units 06:04 06:04 WBC 10.3 (3.8-10.6) k/uL RBC 4.13 L (4.30-5.90) m/uL Hgb 12.6 L (13.0-17.5) gm/dL Hct 37.0 L (39.0-53.0) % MCV 89.5 (80.0-100.0) fL MCH 30.6 (25.0-35.0) pg MCHC 34.2 (31.0-37.0) g/dL RDW 13.5 (11.5-15.5) % Plt Count 298 (150-450) k/uL Neutrophils % 70 % Lymphocytes % 17 % Monocytes % 8 % Eosinophils % 1 % Basophils % 0 % Neutrophils # 7.2 (1.3-7.7) k/uL Lymphocytes # 1.8 (1.0-4.8) k/uL Monocytes # 0.8 (0-1.0) k/uL Eosinophils # 0.1 (0-0.7) k/uL Basophils # 0.1 (0-0.2) k/uL Sodium 133 L (137-145) mmol/L Potassium 3.6 (3.5-5.1) mmol/L Chloride 94 L (98-107) mmol/L Carbon Dioxide 29 (22-30) mmol/L Anion Gap 10 mmol/L BUN 14 (9-20) mg/dL Creatinine 0.75 (0.66-1.25) mg/dL Est GFR (CKD-EPI)AfAm >90 (>60 ml/min/1.73 sqM) Est GFR (CKD-EPI)NonAf >90 (>60 ml/min/1.73 sqM) Glucose 95 (74-99) mg/dL Calcium 8.8 (8.4-10.2) mg/dL Creatine Kinase 125 (55-170) U/L Disposition Clinical Impression: Thrombophlebitis Disposition: ADMITTED IP TO THIS HOSP Condition: Fair Is patient prescribed a controlled substance at d/c from ED?: No Referrals: None,Stated [Primary Care Provider] - 1-2 days Decision Time: 06:33
[2019-01-08 06:17] LABS: Basophils # (A) 0.1 k/uL (0-0.2); Basophils % (A) 0 %; Eosinophils # (A) 0.1 k/uL (0-0.7); Eosinophils % (A) 1 %; HGB 12.6 gm/dL (13.0-17.5); Lymphocytes # (A) 1.8 k/uL (1.0-4.8); Lymphocytes % (A) 17 %; MCH 30.6 pg (25.0-35.0); MCHC 34.2 g/dL (31.0-37.0); MCV 89.5 fL (80.0-100.0); Mean Platelet Volume 7.7; Monocytes # (A) 0.8 k/uL (0-1.0); Monocytes % (A) 8 %; Neutrophils # (A) 7.2 k/uL (1.3-7.7); Neutrophils % (A) 70 %; Platelet Count 298 k/uL (150-450); RBC 4.13 m/uL (4.30-5.90); RDW 13.5 % (11.5-15.5); WBC 10.3 k/uL (3.8-10.6)
[2019-01-08 06:25] LABS: African American GFR (CKD) >90 (>60 ml/min/1.73 sqM); Anion Gap 10 mmol/L; Blood Urea Nitrogen 14 mg/dL (9-20); Calcium 8.8 mg/dL (8.4-10.2); Carbon Dioxide 29 mmol/L (22-30); Chloride 94 mmol/L (98-107); Creatine Kinase 125 U/L (55-170); Glucose 95 mg/dL (74-99); Non-African American GFR(CKD) >90 (>60 ml/min/1.73 sqM); Potassium 3.6 mmol/L (3.5-5.1); Sodium 133 mmol/L (137-145)
--- NOTE | 2019-01-08 06:26 | US ---
EXAM: US Duplex Left Upper Extremity Veins CLINICAL HISTORY: Pain left arm/neck x 5 days. No hx of DVT. Not on blood thinners. TECHNIQUE: Real-time duplex ultrasound scan of the left upper extremity veins integrating B-mode two-dimensional vascular structure, Doppler spectral analysis, color flow Doppler imaging and compression. COMPARISON: No relevant prior studies available. FINDINGS: Limited exam due to patient's pain and limited range of motion of arm. Unable to clearly evaluate subclavian vein due to patient's area of pain, therefore cannot rule out thrombosis within subclavian vein. Superficial echogenic thrombus in left anterior forearm, best seen on image [id number] and [id number]. Vein appears non-compressible with very little flow. The remaining veins imaged, including cephalic, brachial, axillary, radial, ulnar, basilic veins, are compressible. Prominent bilateral cervical lymph nodes, largest measures about 14 mm in long axis. IMPRESSION: Superficial echogenic thrombus in left anterior forearm <MYCVCSECTION> [employer] 01/08/19 07:02 Verify Receipt Verified receipt with Clerk Aixa Andrew on 01/08 07:01 (-04:00)
[2019-01-08] MEDS ORDERED: ACETAMINOPHEN TAB 325 MG TAB PO PRN (06:30)
[2019-01-08] MEDS ORDERED: NALOXONE 0.4 MG/ML 1 ML VIAL IV PRN (06:30)
[2019-01-08] MEDS ORDERED: VANCOMYCIN IV PER PHARMACY 1 EACH MISC MISCELLANE PRN (06:32)
[2019-01-08] MEDS ORDERED: VANCOMYCIN 1,500 MG in SODIUM CHLORIDE 0.9% 250 ML IVPB STA (06:33)
[2019-01-08] MEDS ORDERED: HYDROmorphone 0.5 MG/0.5 ML SYRINGE IVP STA (06:50)
[2019-01-08 07:17] LABS: Appearance,Urine Clear (Clear); Bilirubin,Urine Negative (Negative); Blood,Urine Negative (Negative); Color,Urine Yellow; Glucose,Urine (UA) Negative (Negative); Ketones,Urine Negative (Negative); Leukocyte Esterase,Urine Negative (Negative); Nitrite,Urine Negative (Negative); Protein,Urine Trace (Negative); Specific Gravity,Urine 1.017 (1.001-1.035)
--- NOTE | 2019-01-08 07:42 | XR ---
EXAMINATION TYPE: XR forearm LT DATE OF EXAM: 01/08/2019 CLINICAL HISTORY: Left arm pain near elbow. TECHNIQUE: Two views of the left forearm are obtained. COMPARISON: None. FINDINGS: There is no acute fracture or dislocation seen in the left radius or ulna. The left elbow and wrist joints appear within normal limits. The overlying soft tissue appears within normal limit s. IMPRESSION: As above.
--- NOTE | 2019-01-08 07:43 | XR ---
EXAMINATION TYPE: XR chest 2V DATE OF EXAM: 01/08/2019 COMPARISON: Chest x-ray and CTA chest 3 days ago. HISTORY: Difficulty in breathing. TECHNIQUE: Frontal and lateral views of the chest are obtained. FINDINGS: There is no focal air space opacity, pleural effusion, or pneumothorax seen. The cardiac silhouette size is within normal limits. The osseous structures are intact. IMPRESSION: No acute cardiopulmonary process. No significant change from prior.
[2019-01-08] MEDS: SODIUM CHLORIDE 0.9% 1,000 ML IV SCH (08:20)
[2019-01-08] MEDS ORDERED: ALBUTEROL NEBULIZED 2.5 MG/3 ML INHALATION PRN (14:01)
[2019-01-08] MEDS ORDERED: NAPROXEN SODIUM 440 MG PO PRN (14:01)
[2019-01-08] MEDS ORDERED: LORazepam 2 MG/ML INJ IV PRN (14:05)
[2019-01-08] MEDS ORDERED: diphenhydrAMINE 50 MG/ML 1 ML VIAL IVP PRN (14:27)
[2019-01-08] MEDS: HEPARIN SODIUM,PORCINE 5,000 UNIT/ML 1 ML VIAL SQ SCH ×2 (15:30→21:05)
[2019-01-08] MEDS: VANCOMYCIN 1,500 MG in SODIUM CHLORIDE 0.9% 250 ML IVPB SCH ×2 (15:30→23:53)
--- NOTE | 2019-01-08 16:06 | HP ---
HISTORY AND PHYSICAL DATE OF SERVICE: 01/08/2019 CHIEF COMPLAINT: Chest pain and left arm pain. HISTORY OF PRESENT ILLNESS: This 33-year-old gentleman with a past medical history of IV drug abuse, not being followed by any primary physician in the outpatient setting complaining of left-sided chest pain as well as left arm pain. The patient took IV medications yesterday. The patient is not using clean treatment all the time. The patient does not have any shortness of breath. The patient came to [facility] and venous Doppler was done on the left side which showed superficial echogenic thrombus in the left anterior forearm. Otherwise, a forearm x-ray showed no acute abnormality. No acute fractures. No chest pain. No palpitations. No fever. PAST MEDICAL HISTORY: History of IV drug abuse, history of MRSA, kidney stones, methamphetamine abuse, history of nicotine dependence. History of asthma. MEDICATIONS: Prior to admission include: 1. Naprosyn 440 mg t.i.d. p.r.n. 2. Albuterol p.r.n. ALLERGIES: IBUPROFEN, PENICILLIN. FAMILY HISTORY: No history of heart disease or strokes in the family. SOCIAL HISTORY: History of heroin, marijuana, methamphetamine, opiates. REVIEW OF SYSTEMS: ENT: No diminished vision. No diminished hearing. CARDIOVASCULAR: No angina or palpitations. Otherwise, as mentioned earlier. RESPIRATIONS: As mentioned earlier. GI no nausea or vomiting. no dysuria. Nervous system: No numbness or weakness. ALLERGY/IMMUNOLOGY: No asthma or hayfever. MUSCULOSKELETAL as mentioned earlier. HEMATOLOGY/ONCOLOGY: No history of anemia. ENDOCRINE: No history of diabetes or hypothyroidism. CONSTITUTIONAL: As mentioned earlier. DERMATOLOGY: Negative. RHEUMATOLOGY: Negative. PSYCHIATRY as mentioned. PHYSICAL EXAMINATION: Alert and oriented times three. Pulse is 83. Blood pressure 128/60, respiration 18, temperature 98.1, pulse ox 99% on room air. HEENT: Conjunctivae normal. NECK: No JVD. CARDIOVASCULAR: S1, S2 muffled. RESPIRATORY: Breath sounds diminished in the bases. A few rhonchi. No crackles. ABDOMEN: Soft, nontender. No mass palpable. LEGS: No edema. No swelling. NERVOUS SYSTEM: Higher functions as mentioned earlier. Moves all four limbs. No focal deficits. LYMPHATICS: No lymph nodes palpable in the neck, axillae or groin. SKIN: No ulcer, no rashes. The patient has some tenderness. Some erythema, erythema also present on examination of the left arm. JOINTS: No active deforming arthropathy. LABS: WBC 10.3, hemoglobin 12.6. Sodium is 133. ASSESSMENT: 1. Acute left superficial forearm thrombophlebitis with possible surrounding cellulitis with severe pain. 2. Anemia, normocytic of undetermined origin. 3. Hyponatremia. 4. Polysubstance abuse including heroin, THC, methamphetamine, opiates. 5. History of kidney stones. 6. History of MRSA. 7. History of asthma. 8. Continued history of nicotine dependence. RECOMMENDATIONS AND DISCUSSION: This 33-year-old gentleman who presented with multiple medical issues, we will monitor the patient closely. Continue the current management, symptomatic treatment. We will initiate broad-spectrum IV antibiotics. Infectious disease evaluation. Otherwise, I would also get a D-dimer and further evaluation and if the D-dimer is positive, I would recommend a CT angio of the chest for the possibility of pulmonary embolism. Otherwise, prognosis guarded. 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 Recommended outpatient followup. Prognosis guarded. Further recommendations to follow. MMODL / IJN: [id number] /
[2019-01-08] MEDS ORDERED: TEMAZEPAM 15 MG CAP PO PRN (21:00)
[2019-01-08] MEDS: HYDROmorphone 0.5 MG/0.5 ML SYRINGE IVP PRN (21:11)
[2019-01-09] MEDS: KETOROLAC 30 MG/ML 1 ML VIAL IVP PRN ×2 (01:07→17:17)
[2019-01-09] MEDS: HYDROmorphone 0.5 MG/0.5 ML SYRINGE IVP PRN ×3 (05:59→19:12)
[2019-01-09] MEDS: SODIUM CHLORIDE 0.9% 1,000 ML IV SCH (06:00)
[2019-01-09] MEDS: HEPARIN SODIUM,PORCINE 5,000 UNIT/ML 1 ML VIAL SQ SCH ×2 (07:57→20:07)
[2019-01-09] MEDS: VANCOMYCIN 1,500 MG in SODIUM CHLORIDE 0.9% 250 ML IVPB SCH ×2 (07:57→15:40)
[2019-01-09] MEDS: PANTOPRAZOLE 40 MG TABLET PO SCH (07:57)
[2019-01-09] MEDS ORDERED: diphenhydrAMINE 25 MG CAP PO PRN (11:36)
[2019-01-09] MEDS ORDERED: VANCOMYCIN TROUGH DUE 1 EACH MISC MISCELLANE ONE ×2 (15:00→23:00)
--- NOTE | 2019-01-09 17:13 | PN ---
PROGRESS NOTE DATE OF SERVICE: 01/09/2019. This 33-year-old gentleman was admitted with chest pain and left arm pain possibly had superficial thrombophlebitis also. The patient also had history of polysubstance abuse. The patient also has evidence of cellulitis. Patient on broad spectrum antibiotics. Patient is refusing some of the labs. The cultures negative so far. Infectious Disease, Dr. Cali is following the patient closely. PHYSICAL EXAM: Alert and oriented times three. Pulse 77, blood pressure 126/70. Respirations 16, temperature 98.9, pulse ox 98% on room air. HEENT: Conjunctivae normal. NECK: No jugular venous distention. CARDIOVASCULAR: S1, S2 muffled. RESPIRATORY: Breath sounds diminished in the bases. No rhonchi. No crackles. ABDOMEN: Soft, nontender. No mass palpable. LEGS: No edema. No swelling. Left forearm has significant tenderness, erythema, cellulitis present. NERVOUS SYSTEM: Higher functions as mentioned earlier. Moves all four limbs. No focal deficits. LYMPHATICS: No lymph nodes palpable in the neck, axillae or groin. SKIN: No ulcer, no rashes and no bleeding. JOINTS: No active deforming arthropathy. CENTRAL NERVOUS SYSTEM: Diffusely weak. LAB STUDIES: WBC 10.3, hemoglobin 12.2, sodium 133. ASSESSMENT: 1. Acute left superficial forearm thrombophlebitis with possible surrounding cellulitis with severe pain. 2. Anemia, normocytic of undetermined origin. 3. Hyponatremia. 4. Polysubstance abuse including THC, methamphetamine, opiates. 5. History of kidney stones. 6. History of MRSA. 7. History of asthma. 8. Continued ongoing nicotine dependence. RECOMMENDATIONS AND DISCUSSION: Recommend to continue current medications, management and symptomatic treatment. Otherwise, continue the antibiotics. Monitor renal functions. Prognosis guarded because of multiple complex medical issues. Further recommendations to follow. MMODL / IJN: [id number] /
[2019-01-09] MEDS: KETOROLAC 30 MG/ML 1 ML VIAL IVP SCH ×2 (18:17→23:13)
[2019-01-09] MEDS ORDERED: DAPTOmycin 500 MG in SODIUM CHLORIDE 0.9% 50 ML IVPB SCH (19:00)
[2019-01-09] MEDS: NICOTINE 21MG/24HR PATCH TRANSDERM SCH (19:07)
--- NOTE | 2019-01-09 23:06 | P.CONS ---
History of Present Illness - Reason for Consult Consult date: 01/09/19 - Chief Complaint pain left arm - History of Present Illness 33 -year-old male who has a history of active injection drug use presents to the emergency center with complaints of pain and swelling to his left upper extremity. Relates that the left forearm was last site of his injection of heroin become utilizing paraphernalia that was not sterile. He had a somewhat sudden onset of pain swelling and erythema to the forearm in because of onset of fever he presented to the emergency center. X-rays did not reveal any fracture, exam without trauma but there was significant swelling and ultrasound showed evidence of a superficial thrombosis. Because of the cellulitis and concerns to sepsis the patient was admitted to hospital for further intervention. Tonsils requested because of the cellulitis of active drug use. Review of Systems HEENT:Denies headache or acute visual change. Denies sinus or mouth discomforts. Denies neck stiffness or pain. Denies significant oral cavity pain. Denies difficulty on swallowing. Lungs: Denies significant shortness of breath, cough, sputum production, or hemoptysis. Cardiovascular: Denies significant shortness of breath, chest pain, chest wall pain, orthopnea, dyspnea on exertion, syncope Gastrointestinal:Denies nausea, vomiting, diarrhea, constipation, hematemesis, melena, hematochezia. No no significant change of bowel habit noticed. Musculoskeletal: denies significant myalgias or arthralgias. No new joint swelling. Denies new back pain. Skin: As per the HPI as the swelling and pain to the left forearm. Does utilize his medial ankles are sites of injection but neither area has evidence of active infection at this time. Neuro: Denies headache or visual change. Denies any new onset weakness or dif ficulty with ambulation. Denies falls or seizures. Psychiatric: Chronic anxiety and depression Endocrine: Denies significant fatigue, denies significant weight loss or weight gain. Past Medical History Past Medical History: No Reported History Additional Past Medical History / Comment(s): kidney stones, methamphetamine abuse History of Any Multi-Drug Resistant Organisms: MRSA Year Discovered:: 2007/MRSA MDRO Source:: left arm Past Surgical History: No Surgical Hx Reported Past Psychological History: No Psychological Hx Reported Smoking Status: Current every day smoker Past Alcohol Use History: None Reported, Occasional Additional Past Alcohol Use History / Comment(s): Patient is a smoker of one pack to one and half packs per day. He denies any alcohol abuse. He does drink alcohol on the weekends. He does have history of marijuana and cocaine use. He denies any intranasal drug use. He admits to IV drug use. He has been at [facility] in the past. Has active injection drug use at this time with heroin as the primary drug. His father uncle and grandfather are all physicians. 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 No animals where he is currently living. Has children but does not have custody Past Drug Use History: Heroin, Marijuana, Methamphetamine, Opiates - Past Family History Mother History Unknown: Yes Father History Unknown: Yes Medications and Allergies Home Medications and Allergies Comment(s): Current Medications Acetaminophen (Tylenol Tab) 650 mg PO Q6HR PRN PRN Reason: Mild Pain or Fever > 100.5 Albuterol Sulfate (Ventolin Nebulized) 2.5 mg INHALATION RT-Q6H PRN PRN Reason: Shortness Of Breath Diphenhydramine HCl (Benadryl) 25 mg PO Q6HR PRN PRN Reason: Allergy Symptoms Heparin Sodium (Porcine) (Heparin) 5,000 unit SQ Q12HR EVER Last Admin: 01/09/19 20:07 Dose: Not Given Documented by: Hydromorphone HCl (Dilaudid) 0.5 mg IVP Q6HR PRN PRN Reason: Severe Pain Last Admin: 01/09/19 19:12 Dose: 0.5 mg Documented by: Sodium Chloride (Saline 0.9%) 1,000 mls @ 20 mls/hr IV .Q24H EVER Last Admin: 01/09/19 06:00 Dose: 20 mls/hr Documented by: Daptomycin 500 mg/ Sodium (Chloride) 50 mls @ 100 mls/hr IVPB Q24H EVER; Prot ocol Last Admin: 01/09/19 19:07 Dose: 100 mls/hr Documented by: Ketorolac Tromethamine (Toradol) 30 mg IVP Q6HR EVER Stop: 01/13/19 18:16 Last Admin: 01/09/19 18:17 Dose: Not Given Documented by: Lorazepam (Ativan) 1 mg IV Q4HR PRN PRN Reason: Anxiety Last Admin: 01/09/19 09:54 Dose: 1 mg Documented by: Miscellaneous Information (Vancomycin Trough Due) 1 each MISCELLANE ONCE ONE Stop: 01/09/19 23:01 Last Admin: 01/09/19 20:04 Dose: Not Given Documented by: Naloxone HCl (Narcan) 0.2 mg IV Q2M PRN PRN Reason: Opioid Reversal Nicotine (Habitrol 21mg/24hr Patch) 1 patch TRANSDERM DAILY [facility] Last Admin: 01/09/19 19:07 Dose: 1 patch Documented by: Pantoprazole Sodium (Protonix) 40 mg PO AC-BRKFST [facility] Last Admin: 01/09/19 07:57 Dose: 40 mg Documented by: Temazepam (Restoril) 15 mg PO HS PRN PRN Reason: Insomnia Home Medications Medication Instructions Recorded Confirmed Type Albuterol Inhaler [Ventolin Hfa 2 puff INHALATION RT-Q6H PRN 01/08/19 01/08/19 History Inhaler] Naproxen Sodium [Aleve] 440 mg PO TID PRN 01/08/19 01/08/19 History Allergies Allergy/AdvReac Type Severity Reaction Status Date / Time ibuprofen Allergy Itching Verified 01/08/19 07:13 Penicillins Allergy Itching Verified 01/08/19 07:13 Physical Exam Vitals: Vital Signs Temp Pulse Resp BP BP Pulse Ox 01/09/19 15:45 16 01/09/19 14:02 98.9 F 77 16 120/67 98 01/09/19 08:00 67 18 01/09/19 04:40 98.0 F 67 18 100/53 100 Intake and Output 01/09/19 01/09/19 01/09/19 06:59 14:59 22:59 Other: Voiding Method Toilet Toilet # Voids 2 2 # Bowel Movements 0 HEENT: Anicteric conjunctiva are pink and moist nasal mucosa grossly intact without significant lesions, there is no thrush. Dentition is poor for age Neck: The neck is supple without significant lymphadenopathy or thyromegaly. Lungs: Good bilateral air entry without significant crackles or wheezing. There is no significant bronchial sounds. There is no egophony or dullness. Heart: Regular rate and rhythm with an audible S1-S2, no S3 no S4. There is no significant murmur click or rub, PMI was nondisplaced. Abdomen: Positive bowel sounds soft and nontender without palpable masses or organomegaly. There was no guarding or rebound. Extremities: Right upper extremities intact. Left upper extremity has some mild swelling there is distinct tenderness in the forearm into the arm itself. There is minimal induration is being seen. There is no palpable thrombosis at this time. There is no distinct lymphadenopathy. The lower extremities have no significant edema but there is evidence of the sites of prior injection with some scarring but no phlebitis erythema or ulceration. Neuro: Awake alert oriented to person place and time. There are no acute new gross focal sensory motor deficits. Results CBC & Chem 7: 01/08/19 06:04 01/08/19 06:04 Labs: Microbiology - Last 24 Hours (Table) 01/08/19 07:06 Urine Culture - Final Urine,Clean Catch 01/08/19 06:04 Blood Culture - Preliminary Blood No Growth after 24 hours Laboratory Results WBC 10.3 k/uL (3.8-10.6) 01/08/19 06:04 RBC 4.13 m/uL (4.30-5.90) L 01/08/19 06:04 Hgb 12.6 gm/dL (13.0-17.5) L 01/08/19 06:04 Hct 37.0 % (39.0-53.0) L 01/08/19 06:04 MCV 89.5 fL (80.0-100.0) 01/08/19 06:04 MCH 30.6 pg (25.0-35.0) 01/08/19 06:04 MCHC 34.2 g/dL (31.0-37.0) 01/08/19 06:04 RDW 13.5 % (11.5-15.5) 01/08/19 06:04 Plt Count 298 k/uL (150-450) 01/08/19 06:04 Neutrophils % 70 % 01/08/19 06:04 Lymphocytes % 17 % 01/08/19 06:04 Monocytes % 8 % 01/08/19 06:04 Eosinophils % 1 % 01/08/19 06:04 Basophils % 0 % 01/08/19 06:04 Neutrophils # 7.2 k/uL (1.3-7.7) 01/08/19 06:04 Lymphocytes # 1.8 k/uL (1.0-4.8) 01/08/19 06:04 Monocytes # 0.8 k/uL (0-1.0) 01/08/19 06:04 Eosinophils # 0.1 k/uL (0-0.7) 01/08/19 06:04 Basophils # 0.1 k/uL (0-0.2) 01/08/19 06:04 Sodium 133 mmol/L (137-145) L 01/08/19 06:04 Potassium 3.6 mmol/L (3.5-5.1) 01/08/19 06:04 Chloride 94 mmol/L (98-107) L 01/08/19 06:04 Carbon Dioxide 29 mmol/L (22-30) 01/08/19 06:04 Anion Gap 10 mmol/L 01/08/19 06:04 BUN 14 mg/dL (9-20) 01/08/19 06:04 Creatinine 0.75 mg/dL (0.66-1.25) 01/08/19 06:04 Est GFR (CKD-EPI)AfAm >90 (>60 ml/min/1.73 sqM) 01/08/19 06:04 Est GFR (CKD-EPI)NonAf >90 (>60 ml/min/1.73 sqM) 01/08/19 06:04 Glucose 95 mg/dL (74-99) 01/08/19 06:04 Calcium 8.8 mg/dL (8.4-10.2) 01/08/19 06:04 Creatine Kinase 125 U/L (55-170) 01/08/19 06:04 Urine Color Yellow 01/08/19 07:06 Urine Appearance Clear (Clear) 01/08/19 07:06 Urine pH 6.0 (5.0-8.0) 01/08/19 07:06 Ur Specific [place] 1.017 (1.001-1.035) 01/08/19 07:06 Urine Protein Trace (Negative) H 01/08/19 07:06 Urine Glucose (UA) Negative (Negative) 01/08/19 07:06 Urine Ketones Negative (Negative) 01/08/19 07:06 Urine Blood Negative (Negative) 01/08/19 07:06 Urine Nitrite Negative (Negative) 01/08/19 07:06 Urine Bilirubin Negative (Negative) 01/08/19 07:06 Urine Urobilinogen 2.0 mg/dL (<2.0) 01/08/19 07:06 Ur Leukocyte Esterase Negative (Negative) 01/08/19 07:06 Microbiology 01/08/19 07:06 Urine,Clean Catch Urine Culture - Final 01/08/19 06:04 Blood Blood Culture - Preliminary No Growth after 24 hours Comments: Venous ultrasound shows evidence of the superficial thrombosis no deep venous thrombosis identified Assessment and Plan (1) Thrombophlebitis Current Visit: Yes Status: Acute Code(s): I80.9 - PHLEBITIS AND THROMBOPHLEBITIS OF UNSPECIFIED SITE SNOMED Code(s): 24382131 (2) Cellulitis of left arm Narrative/Plan: 33-year-old male who has a history of active injection drug use with heroin, had injected into his left arm and has developed evidence of a superficial thrombophlebitis as well as the cellulitis of the arm. The patient is refusing blood draws at this time counseling vancomycin will be changed to daptomycin which will not require any specific drug level monitoring. Would expect after a few doses of antibiotic therapy to pain and swelling will improve. Elevation the limb is helpful. Anti-inflammatory for Toradol has been requested to help with the significant pain. Primary service has utilize some morphine for his snippy and pain control. He is not having significant narcotic withdrawal at this time. He is an active smoker in the nicotine patches given. His diet should be freed up as much as possible. A K pad has been requested to try to improve the local discomfort. In the limb should be elevated as much as he can tolerate. He believes he is up-to-date on his tetanus. Laboratory testing including up-to-date HIV testing should be performed if he allows. Current Visit: Yes Status: Acute Code(s): L03.114 - CELLULITIS OF LEFT UPPER LIMB SNOMED Code(s): 494291570
[2019-01-10 00:10] VITALS: TEMP 97.8
[2019-01-10] MEDS: HYDROmorphone 0.5 MG/0.5 ML SYRINGE IVP PRN (02:36)
[2019-01-10] MEDS: SODIUM CHLORIDE 0.9% 1,000 ML IV SCH (05:39)
[2019-01-10] MEDS: KETOROLAC 30 MG/ML 1 ML VIAL IVP SCH (06:12)
[2019-01-10 06:13] VITALS: BP 120/60; PULSE 79; RESP 16
[2019-01-10] MEDS: HEPARIN SODIUM,PORCINE 5,000 UNIT/ML 1 ML VIAL SQ SCH (06:52)
[2019-01-10] MEDS: NICOTINE 21MG/24HR PATCH TRANSDERM SCH (07:39)
[2019-01-10] MEDS: PANTOPRAZOLE 40 MG TABLET PO SCH (07:39)
--- NOTE | 2019-01-11 00:28 | DS ---
DISCHARGE SUMMARY FINAL DIAGNOSES: 1. Acute left superficial forearm thrombophlebitis with possible surrounding cellulitis with severe pain. 2. Anemia, normocytic anemia of undetermined origin. 3. Hyponatremia. 4. Polysubstance abuse including THC, methamphetamine and opiates. 5. History of kidney stones. 6. History of MRSA. 7. History of asthma. 8. Continued ongoing nicotine dependence. DISCHARGE: The patient left the hospital AGAINST MEDICAL ADVICE. HISTORY OF PRESENT ILLNESS: This 33-year-old gentleman with a past medical history of multiple medical problems, admitted with superficial thrombophlebitis as well as possible cellulitis. The patient was treated with antibiotics, but however the patient left the hospital AGAINST MEDICAL ADVICE before the treatment could be completed. Prognosis remains extremely guarded. The patient is also seen by Infectious Disease also. Please refer to the multiple notes for further information. MMODL / IJN: [id number] /
== END 2019-01-10 10:06 | disposition left against medical advice (07) | DRG 300 ==
LOC: EC 04:09 → OBSVTOIN 06:30 → 4MS4W 06:30
PROVIDERS: ADMIT Hospitalist; ATTEND Hospitalist
DX: I80.8 Phlebitis and thrombophlebitis of other sites (principal); L03.114 Cellulitis of left upper limb; E87.1 Hypo-osmolality and hyponatremia; D64.9 Anemia, unspecified; F17.200 Nicotine dependence, unspecified, uncomplicated; F19.10 Other psychoactive substance abuse, uncomplicated; F11.10 Opioid abuse, uncomplicated; J45.909 Unspecified asthma, uncomplicated; Z59.0 Homelessness; Z86.14 Personal history of Methicillin resistant Staphylococcus aureus infection; Z87.442 Personal history of urinary calculi; Z88.6 Allergy status to analgesic agent; Z88.0 Allergy status to penicillin
CPT/HCPCS: 36415; 71046; 80048; 81003; 82550; 85025; 87040; 87086; 96365; 96366; 96375; 99285

== ENCOUNTER 2019-06-22 13:40 | Inpatient (IN) | payer BC, OTHER ==
[2019-06-22] MEDS ORDERED: SODIUM CHLORIDE 0.9% 1,000 ML IV STA (14:18)
[2019-06-22] MEDS ORDERED: ACETAMINOPHEN TAB 325 MG TAB PO STA (14:18)
[2019-06-22] MEDS ORDERED: RX INFO: IV CONTRAST WAS GIVEN 1 EACH MISC MISCELLANE PRN (14:19)
[2019-06-22] MEDS ORDERED: HYDROmorphone 1 MG/ML 1 ML SYRINGE IVP STA ×2 (14:20→16:03)
--- NOTE | 2019-06-22 14:28 | ED ---
General Adult HPI - General Chief complaint: Skin/Abscess/Foreign Body Stated complaint: Infection Time Seen by Provider: 06/22/19 14:12 Source: patient, RN notes reviewed, old records reviewed Mode of arrival: ambulatory Limitations: no limitations - History of Present Illness Initial comments: 33-year-old male history of IV drug abuse presenting for evaluation of pain in the left upper chest. Patient was diagnosed with [facility]elitis at an [facility]. He was instructed to follow-up with infectious disease regarding continuous daily antibiotic infusion. He did not have any follow-up after his diagnosis which was in March 2019. He's had fevers and chills. Had worsening pain in this region. He states he did have workup for endocarditis at this time and is uncertain of the results. He is not currently on any antibiotics. - Related Data Home Medications Medication Instructions Recorded Confirmed Albuterol Inhaler [Ventolin Hfa 2 puff INHALATION RT-Q6H PRN 01/08/19 01/08/19 Inhaler] Naproxen Sodium [Aleve] 440 mg PO TID PRN 01/08/19 01/08/19 Allergies Allergy/AdvReac Type Severity Reaction Status Date / Time ibuprofen Allergy Itching Verified 01/29/19 15:37 Penicillins Allergy Itching Verified 01/29/19 15:37 Review of Systems ROS Statement: Those systems with pertinent positive or pertinent negative responses have been documented in the HPI. ROS Other: All systems not noted in ROS Statement are negative. Past Medical History Past Medical History: No Reported History Additional Past Medical History / Comment(s): kidney stones, methamphetamine abuse History of Any Multi-Drug Resistant Organisms: MRSA Date of last positivie culture/infection: 2015/MRSA MDRO Source:: unknown Past Surgical History: Hernia Repair, Orthopedic Surgery Additional Past Surgical History / Comment(s): lt arm Past Psychological History: No Psychological Hx Reported Smoking Status: Current every day smoker Past Alcohol Use History: Occasional Past Drug Use History: Heroin, Marijuana, Methamphetamine, Opiates - Past Family History Mother History Unknown: Yes Father History Unknown: Yes General Exam Limitations: no limitations General appearance: alert, in no apparent distress Head exam: Present: atraumatic, normocephalic Eye exam: Present: normal appearance, PERRL ENT exam: Present: normal exam Neck exam: Present: tenderness (Tenderness left neck and clavicle). Absent: meningismus Respiratory exam: Present: normal lung sounds bilaterally, chest wall tenderness. Absent: respiratory distress, wheezes Cardiovascular Exam: Present: regular rate, normal rhythm GI/Abdominal exam: Present: soft. Absent: distended, tenderness, guarding Extremities exam: Present: normal inspection, normal capillary refill. Absent: pedal edema, calf tenderness Back exam: Present: normal inspection, full ROM Neurological exam: Present: alert, oriented X3, CN II-XII intact. Absent: motor sensory deficit Psychiatric exam: Present: normal affect, normal mood Skin exam: Present: warm, dry, intact. Absent: cyanosis, diaphoretic Course Vital Signs 06/22/19 13:46 Temperature 97.8 F Pulse Rate 109 H Respiratory 20 Rate Blood Pressure 114/77 O2 Sat by Pulse 99 Oximetry - Reevaluation(s) Reevaluation #1: 06/22/19 16:08 Records will be obtained from his hospital admission at [facility] in [place] Medical Decision Making - Medical Decision Making 33-year-old male with osteomyelitis of the left clavicle and first rib. Patient has been lost to outpatient follow-up and was told he needed to be on an tibiotics which she has not received. He's been running fevers over the past several weeks. He is afebrile here with some tachycardia otherwise stable vitals. He has a CT showing osteomyelitis of the left sternum and first rib. He is initiated on antibiotics awaiting culture results. He is given ceftriaxone and vancomycin in the emergency department. He will be admitted, echo will be obtained. Infectious disease will be placed on consult. Case is discussed with the admitting physician Dr. Ojeda - Lab Data Result diagrams: 06/22/19 15:12 06/22/19 15:25 Lab Results 06/22/19 06/22/19 06/22/19 Range/Units 15:12 15:25 15:25 WBC 8.8 (3.8-10.6) k/uL RBC 5.81 (4.30-5.90) m/uL Hgb 17.5 (13.0-17.5) gm/dL Hct 51.1 (39.0-53.0) % MCV 87.8 (80.0-100.0) fL MCH 30.1 (25.0-35.0) pg MCHC 34.2 (31.0-37.0) g/dL RDW 14.1 (11.5-15.5) % Plt Count 125 L (150-450) k/uL Neutrophils % 61 % Lymphocytes % 28 % Monocytes % 6 % Eosinophils % 2 % Basophils % 2 % Neutrophils # 5.3 (1.3-7.7) k/uL Lymphocytes # 2.4 (1.0-4.8) k/uL Monocytes # 0.5 (0-1.0) k/uL Eosinophils # 0.1 (0-0.7) k/uL Basophils # 0.1 (0-0.2) k/uL Sodium 139 (137-145) mmol/L Potassium 4.6 (3.5-5.1) mmol/L Chloride 105 (98-107) mmol/L Carbon Dioxide 28 (22-30) mmol/L Anion Gap 6 mmol/L BUN 22 H (9-20) mg/dL Creatinine 0.67 (0.66-1.25) mg/dL Est GFR (CKD-EPI)AfAm >90 (>60 ml/min/1.73 sqM) Est GFR (CKD-EPI)NonAf >90 (>60 ml/min/1.73 sqM) Glucose 71 L (74-99) mg/dL Plasma Lactic Acid Jose M 0.9 (0.7-2.0) mmol/L Calcium 9.2 (8.4-10.2) mg/dL Total Bilirubin 0.9 (0.2-1.3) mg/dL AST 26 (17-59) U/L ALT 26 (4-49) U/L Alkaline Phosphatase 69 (38-126) U/L Total Protein 7.3 (6.3-8.2) g/dL Albumin 4.2 (3.5-5.0) g/dL Disposition Clinical Impression: Osteomyelitis of clavicle Disposition: ADMITTED IP TO THIS [facility] Condition: Stable Is patient prescribed a controlled substance at d/c from ED?: No Referrals: None,Stated [Primary Care Provider] - 1-2 days Decision to Admit Reason: Admit from EC Decision Date: 06/22/19 Decision Time: 16:09
[2019-06-22] MEDS ORDERED: VANCOMYCIN IV PER PHARMACY 1 EACH MISC MISCELLANE PRN (15:33)
[2019-06-22] MEDS ORDERED: cefTRIAXone IN SWFI 1,000 MG/10 ML SYRINGE IVP STA (15:33)
[2019-06-22 15:36] LABS: Basophils # (A) 0.1 k/uL (0-0.2); Basophils % (A) 2 %; Eosinophils # (A) 0.1 k/uL (0-0.7); Eosinophils % (A) 2 %; HCT 51.1 % (39.0-53.0); HGB 17.5 gm/dL (13.0-17.5); Lymphocytes # (A) 2.4 k/uL (1.0-4.8); Lymphocytes % (A) 28 %; MCH 30.1 pg (25.0-35.0); MCHC 34.2 g/dL (31.0-37.0); MCV 87.8 fL (80.0-100.0); Mean Platelet Volume 8.3; Monocytes # (A) 0.5 k/uL (0-1.0); Monocytes % (A) 6 %; Neutrophils # (A) 5.3 k/uL (1.3-7.7); Neutrophils % (A) 61 %; Platelet Count 125 k/uL (150-450); RBC 5.81 m/uL (4.30-5.90); RDW 14.1 % (11.5-15.5); WBC 8.8 k/uL (3.8-10.6)
[2019-06-22] MEDS ORDERED: VANCOMYCIN 1,750 MG in SODIUM CHLORIDE 0.9% 500 ML 500 ML IVPB ONE (15:45)
[2019-06-22 15:50] LABS: ALT 26 U/L (4-49); AST 26 U/L (17-59); African American GFR (CKD) >90 (>60 ml/min/1.73 sqM); Albumin 4.2 g/dL (3.5-5.0); Alkaline Phosphatase 69 U/L (38-126); Anion Gap 6 mmol/L; Blood Urea Nitrogen 22 mg/dL (9-20); Calcium 9.2 mg/dL (8.4-10.2); Carbon Dioxide 28 mmol/L (22-30); Chloride 105 mmol/L (98-107); Glucose 71 mg/dL (74-99); Non-African American GFR(CKD) >90 (>60 ml/min/1.73 sqM); Potassium 4.6 mmol/L (3.5-5.1); Sodium 139 mmol/L (137-145); Total Bilirubin 0.9 mg/dL (0.2-1.3); Total Protein 7.3 g/dL (6.3-8.2)
--- NOTE | 2019-06-22 16:00 | CT ---
EXAMINATION TYPE: CT chest w con DATE OF EXAM: 06/22/2019 COMPARISON: CTA chest January 05, 2019 HISTORY: Infection first rib/clavicular osteomyelitis CT DLP: 324.4 mGycm. Automated Exposure Control for Dose Reduction was Utilized. TECHNIQUE: CT scan of the thorax is performed following with IV Contrast, patient injected with 100 mL of Isovue 300. FINDINGS: LUNGS: The lungs are grossly clear, there is no concerning parenchymal mass or nodule identified. T here is no pleural effusion or pneumothorax seen. The tracheobronchial tree is patent. MEDIASTINUM: There are no greater than 1 cm hilar or mediastinal lymph nodes. No cardiomegaly or pe ricardial effusion is seen. OTHER: Anterior medial aspect of the proximal clavicle near sternoclavicular joint shows interval leonora truction axial image [address] Soft tissue mass 1 involvement difficult to differentiate from overlying pectoralis muscle. There is some involvement or destruction of the superior aspect left st ernum coronal image 27. Left first rib shows new oval focus or central bony loss seen best coronal im age 32 measuring 1.3 x 1.2 cm . Remainder osseous structures intact. IMPRESSION: Interval bony destruction left inferior medial proximal clavicle along with the superior left aspect of the sternum could reflect product of acute osteomyelitis in the appropriate clinical s etting. Findings age indeterminate on CT but new from January 05, 2019. Focus of involvement centrally anterior left first rib also noted new from January 05, 2019 CT.
[2019-06-22] MEDS ORDERED: HYDROmorphone 0.5 MG/0.5 ML SYRINGE IVP PRN (16:05)
[2019-06-22] MEDS ORDERED: ONDANSETRON 4 MG/2 ML VIAL IVP PRN (16:05)
[2019-06-22] MEDS ORDERED: ACETAMINOPHEN TAB 325 MG TAB PO PRN (16:05)
[2019-06-22] MEDS ORDERED: NALOXONE 0.4 MG/ML 1 ML VIAL IV PRN (16:05)
[2019-06-22] MEDS ORDERED: MELATONIN 3 MG TABLET PO PRN (17:38)
[2019-06-22] MEDS ORDERED: NICOTINE POLACRILEX 2 MG GUM BUCCAL PRN (17:41)
[2019-06-22] MEDS ORDERED: ACETAMINOPHEN TAB 500 MG TAB PO PRN (17:41)
--- NOTE | 2019-06-22 17:42 | P.HPIM ---
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 In the ER here he underwent an extensive evaluation. Initial vital signs showed a pulse of 109. Laboratory analysis showed a platelet count of 125, BUN 22, glucose of 71 but was otherwise unremarkable. CT chest showed destruction of the proximal clavicle near the sternoclavicular joint, soft tissue mass, and a new oval focus or central bony lesion of the left first rib. He was given a dose of vancomycin and Rocephin. He also was given Dilaudid for pain control. Arrangements are made for admission. Infectious disease and cardiothoracic surg santhosh consulted. Patient seen and examined at bedside in the emergency department. He reports that he has been having worsening pain in his left chest wall since his diagnosis of osteomyelitis in March 2019. He reports that he never followed up after discharge from [facility] and did not receive one dose of IV vancomycin after discharge. At that point in time he had [facility]. He reports that he had a fever the night prior to [facility] of 102.5, however he has been incarcerated for the last 7 days and there was no mention of fever on his transfer paperwork. He reports that he has not been having any nausea, vomiting, or diarrhea. He reports some mild shortness of breath. His appetite has been fine. He immediately went into the room he asked about his pain medication and states that the 1 mg of Dilaudid didn't work and that all appear they were giving him 2 mg of Dilaudid. I explained him that he will not be receiving 2 mg of Dilaudid here. I also explained that he has some Toradol. He says he is ALLERGIC to Motrin myself that his ALLERGIES stated itching and he now describes that his anaphylaxis. He reports that his girlfriend is currently undergoing treatment for endocarditis with vegetation but has been giving 2 years to live. He states that he does use IV opiates he has been using him since being discharged from [place]. He reports that he does no longer tolerate the pain. He was also asking about being discharged to complete his course of IV antibiotics. I think this can be accomplished at the penitentiary but we'll look into it for further details. [place] we will proceed with PICC line placement to ensure that blood cultures are negative and likely 4-6 weeks of IV antibiotics. Review of Systems Pertinent positives and negatives as discussed in HPI, a complete review of systems was performed and all other systems are negative. Past Medical History Additional Past Medical History / Comment(s): kidney stones, heroin abuse, o steomyelitis, hepatitis C History of Any Multi-Drug Resistant Organisms: MRSA Date of last positivie culture/infection: 2016/MRSA MDRO Source:: unknown Past Surgical History: Hernia Repair, Orthopedic Surgery Additional Past Surgical History / Comment(s): lt arm Past Psychological History: No Psychological Hx Reported Smoking Status: Current every day smoker Past Alcohol Use History: Occasional Past Drug Use History: Heroin, Marijuana, Methamphetamine, Opiates - Past Family History Father Additional Family Medical History / Comment(s): alcoholism Medications and Allergies Home Medications Medication Instructions Recorded Confirmed Type No Known Home Medications 06/22/19 06/22/19 History Allergies Allergy/AdvReac Type Severity Reaction Status Date / Time ibuprofen Allergy Itching Verified 06/22/19 16:49 Penicillins Allergy Itching Verified 06/22/19 16:49 Physical Exam Osteopathic Statement: *. No significant issues noted on an osteopathic structural exam other than those noted in the History and Physical/Consult. Vitals: Vital Signs Temp Pulse Resp BP Pulse Ox 06/22/19 13:46 97.8 F 109 H 20 114/77 99 Intake and Output 06/22/19 06/22/19 06/22/19 06:59 14:59 22:59 Other: Weight 88.451 kg General: non toxic, no distress, appears at stated age, normal weight Derm: Lesion over her left chest wall where you can feel bony deformity no erythema or warmth, no fluctuance, Multiple tattoos no unusual rashes/lesions no unusual ecchymoses, warm, dry Head: atraumatic, normocephalic, symmetric Eyes: EOMI, no lid lag, anicteric sclera, pupils equal round reactive to light ENT: Nose and ears atraumatic, no thrush, no pharyngeal erythema Neck: No thyromegaly, no cervical lymphadenopathy, trachea midline, supple Mouth: no lip lesion, mucus membranes moist Cardiovascular: S1S2 reg, no murmur, positive posterior tibial pulse bilateral, no edema, capillary refill less than 2 seconds Lungs: CTA bilateral, no rhonchi, no rales , no accessory muscle use Abdominal: soft, nontender to palpation, no guarding, no appreciable organomegaly, normal bowel sounds Ext: no gross muscle atrophy, muscle strength intact grossly, no contractures, Neuro: CN II-XI grossly intact, light touch intact all 4 extremities, Psych: Alert, oriented, appropriate affect Results CBC & Chem 7: 06/22/19 15:12 06/22/19 15:25 Labs: Abnormal Lab Results - Last 24 Hours (Table) 06/22/19 06/22/19 Range/Units 15:12 15:25 Plt Count 125 L (150-450) k/uL BUN 22 H (9-20) mg/dL Glucose 71 L (74-99) mg/dL CT scan - chest: report reviewed, image reviewed ( noted deformity to left clavical) Thrombosis Risk Factor Assmnt - DVT/VTE Prophylaxis DVT/VTE Prophylaxis: Pharmacologic Prophylaxis ordered Assessment and Plan Assessment: Osteomyelitis of the clavical and left aspect of the sternum - vanco - consult ID and cardio thorasic - blood cultures - ESR and CRP - pain control - Social work consult to determined if can do IV ABX at [facility] - check echo - Records reviewed from Mar 2019 and [facility]. Osteo should have completed 4 weeks of IV vanco, did not or follow-up with ID. Did not cuilture but + MRSA nasal swab and negative blood cultures at that point in time Hx of IVD and multiple infections - check Hep B and HIV Hep C - outpatient follow-up Tobacco abuse - nicotine replacement - cessation The patient is admitted with an anticipated greater than 2 midnight stay for evaluation of Osteomyelitis CODE STATUS:Full DVT prophylaxis: SCDs Discussed with: Patient, ED physician, ED nursing Anticipated discharge date: 1-[address]: home A total of 65 minutes was spent on the care of this complex patient more than 50% of the time was spent in counseling and care coordination.
[2019-06-22 17:55] LABS: Cocaine Screen,Urine Not Detected (NotDetected); Opiate Screen,Urine Detected (NotDetected); Phencyclidine Screen,Urine Not Detected (NotDetected); Urn Cannabinoid Scrn Detected (NotDetected)
[2019-06-22 17:56] LABS: Amphetamine Screen,Urine Detected (NotDetected); Barbiturate Screen,Urine Not Detected (NotDetected); Benzodiazepines Screen,Urine Not Detected (NotDetected); Methadone Screen, Urine Not Detected (NotDetected); Oxycodone Screen, Urine Not Detected (NotDetected); Tricyclic Antidepressant,Urine Not Detected (NotDetected)
[2019-06-22] MEDS: MORPHINE SULFATE 2 MG/ML SYRINGE IVP PRN ×2 (18:01→21:29)
--- NOTE | 2019-06-22 18:49 | P.CONS ---
History of Present Illness - Reason for Consult Consult date: 06/22/19 left clavicular osteomyelitis Requesting physician: Marcos Ojeda - Chief Complaint left sided chest pain x days - History of Present Illness Patient is a 33 year male past medical history significant for IV drug use patient was diagnosed with left clavicular osteomymyelitis back in March 2019, when he was at [facility], patient had did have blood c ultures done and those were negative patient did have nasal MRSA screen which came back positive with presumptive MRSA left clavicular osteomyelitis the patient was treated with IV antibiotic therapy with vancomycin for about 8 days when he was in the hospital, patient at the time of discharge was given the option of going to skilled nursing with IV vancomycin however the patient refused the patient was scheduled to get his daily dose of antibiotic at [facility] with the daily IV placement however the patient never came to the infusion clinic to get his antibiotics. The patient recently got incarcerated and is currently at [facility] patient has been complaining of more pain to left side of the chest for the patient has been brought to [facility] for further management, patient still has pain has been really getting worse over the last 5 days. The patient Denies any history of trauma patient described the pain to be sharp excruciating almost 10 out of 10 with no significant relief either with morphine or Dilaudid that he has received here the patient be coming of some chills but no high-grade fever, on presentation hospital the patient has been afebrile patient white count was normal. Urine drug screen has been positive for opiates and amphetami joy and methamphetamines and marijuana, patient did have a CT of the chest with tissues interval bony destruction left inferior medial proximal clavicle along with the superior left aspect of the sternum patient has been started on vancomycin and infectious disease has been consulted for further recommendation regarding antibiotic therapy Review of Systems CONSTITUTIONAL: Positive for weakness. Denies high-grade Fever EYES: No complaint. ENT:No complaint. RESPIRATORY: As per history of present illness. CARDIOVASCULAR: No complaint. GENITOURINARY: No complaint. GASTROINTESTINAL: No complaint. MUSCULOSKELETAL: As per history of present illness. INTEGUMENTARY: No complaint. PSYCHOLOGICAL: No complaint. ENDOCRINE: No complaint. NEUROLOGIC: No complaint. Past Medical History Past Medical History: No Reported History Additional Past Medical History / Comment(s): kidney stones, heroin abuse, osteomyelitis, hepatitis C History of Any Multi-Drug Resistant Organisms: MRSA Year Discovered:: 2016/MRSA MDRO Source:: unknown Past Surgical History: Hernia Repair, Orthopedic Surgery Additional Past Surgical History / Comment(s): lt arm Past Psychological History: No Psychological Hx Reported Smoking Status: Current every day smoker Past Alcohol Use History: Occasional Past Drug Use History: Heroin, Marijuana, Methamphetamine, Opiates - Past Family History Mother History Unknown: Yes Father History Unknown: Yes Additional Family Medical History / Comment(s): alcoholism Medications and Allergies Home Medications Medication Instructions Recorded Confirmed Type No Known Home Medications 06/22/19 06/22/19 History Allergies Allergy/AdvReac Type Severity Reaction Status Date / Time ibuprofen Allergy Itching Verified 06/22/19 16:49 Penicillins Allergy Itching Verified 06/22/19 16:49 Physical Exam Vitals: Vital Signs Temp Pulse Resp BP Pulse Ox 06/22/19 13:46 97.8 F 109 H 20 114/77 99 Intake and Output 06/22/19 06/22/19 06/22/19 06:59 14:59 22:59 Other: Weight 88.451 kg GENERAL DESCRIPTION: Middle-aged male lying in bed, no distress. No tachypnea or accessory muscle of respiration use. HEENT: Shows Pallor , no scleral icterus. Oral mucous membrane is dry. No pharyngeal erythema or thrush NECK: Trachea central, no thyromegaly. LUNGS: Unlabored breathing. Clear to auscultation anteriorly. No wheeze or crackle. Mild left-sided sternal prominence and tenderness no redness HEART: S1, S2, regular rate and rhythm. No loud murmur ABDOMEN: Soft, no tenderness , guarding or rigidity, no organomegaly EXTREMITIES: No edema of feet. SKIN: No rash, no masses palpable. NEUROLOGICAL: The patient is awake, alert, oriented x3, mood and affect normal. Results CBC & Chem 7: 06/22/19 15:12 06/22/19 15:25 Labs: Abnormal Lab Results - Last 24 Hours (Table) 06/22/19 06/22/19 06/22/19 Range/Units 15:12 15:25 17:32 Plt Count 125 L (150-450) k/uL BUN 22 H (9-20) mg/dL Glucose 71 L (74-99) mg/dL Urine Opiates Screen Detected H (NotDetected) Ur Amphetamines Screen Detected H (NotDetected) U Methamphetamines Scrn Detected H (NotDetected) U Marijuana (THC) Screen Detected H (NotDetected) Assessment and Plan Assessment: 1-patient presented to the hospital with left clavicular pain in this patient who was diagnosed with left clavicle osteomyelitis back in March 2019 however the patient did not got any antibiotics, patient now got incarcerated and is presenting to the hospital with severe pain in this patient currently with no fever or elevated white count however did have significant destruction of the left clavicle on the CT the patient did have blood cultures done at [facility] those were negative, nasal MRSA screen was positive could be related to MRSA or other pathogen 2-penicillin ALLERGY and IV drug use that would limit the number of antibiotic available to treat his condition (1) Osteomyelitis of clavicle Current Visit: Yes Status: Acute Code(s): M86.9 - OSTEOMYELITIS, UNSPECIFIED SNOMED Code(s): 902724701 Plan: 1- blood cultures 2 2-we'll ask interventional radiology if they can aspirate the area for cultures that was held determine infection pathogen 3-Vancomycin pharmacy to dose target trough of 15 while watching his kidney function and Vanco trough closely We will follow on clinical condition and cultures to further adjust medication if needed Thank you for this consultation will follow this patient with you Time with Patient: Greater than 30
[2019-06-22] MEDS: SODIUM CHLORIDE 0.9% 1,000 ML IV SCH (19:45)
[2019-06-22] MEDS: VANCOMYCIN 1,500 MG in SODIUM CHLORIDE 0.9% 250 ML IVPB SCH (23:18)
[2019-06-23] MEDS: MORPHINE SULFATE 4 MG/ML SYRINGE IVP PRN ×8 (00:27→23:50)
[2019-06-23] MEDS: VANCOMYCIN 1,500 MG in SODIUM CHLORIDE 0.9% 250 ML IVPB SCH ×3 (07:31→23:51)
[2019-06-23 07:43] LABS: HCT 39.8 % (39.0-53.0); MCH 30.8 pg (25.0-35.0); MCHC 34.7 g/dL (31.0-37.0); MCV 88.9 fL (80.0-100.0); Mean Platelet Volume 7.9; Platelet Count 246 k/uL (150-450); RBC 4.48 m/uL (4.30-5.90); WBC 6.5 k/uL (3.8-10.6)
[2019-06-23 07:46] LABS: HGB 13.8 gm/dL (13.0-17.5)
[2019-06-23 07:54] LABS: African American GFR (CKD) >90 (>60 ml/min/1.73 sqM); Anion Gap 6 mmol/L; Blood Urea Nitrogen 15 mg/dL (9-20); Calcium 8.7 mg/dL (8.4-10.2); Carbon Dioxide 25 mmol/L (22-30); Chloride 109 mmol/L (98-107); Glucose 125 mg/dL (74-99); Non-African American GFR(CKD) >90 (>60 ml/min/1.73 sqM); Potassium 4.4 mmol/L (3.5-5.1); Sodium 140 mmol/L (137-145)
--- NOTE | 2019-06-23 09:05 | P.GSCN ---
History of Present Illness Consult date: 06/23/19 Reason for Consult: Osteomyelitis of the clavicle Requesting physician: Alondra Castillo History of present illness: This is a 33-year-old gentleman who does not follow with a primary care physician on an outpatient basis. He has a previous medical history of IV drug use, current tobacco dependence, superficial clot to the left arm, hernia repair as a baby, and family history of heart disease. Apparently he began having severe left clavicle pain and was diagnosed with osteomyelitis of the left clavicle in March 2019 at [facility]. He was treated with IV vancomycin and eventually discharged with appointment set up to continue IV vancomycin here in [facility]. He was incarcerated at the time and was released from incarceration in order to complete IV antibiotic treatment, however once he was released from incarceration he failed to comply with outpatient treatment. He continued to use IV heroin, he was reincarcerated, and began to complain of increased pain again in his left clavicle. [facility] was [facility]. He has remained afebrile. White blood cell count was 8.8 on admission, sed rate 7, C-reactive protein less than 5.0, platelet count was 125,000, BUN was 22, otherwise his other lab work was all normal. His urine drug screen was positive for opioids, amphetamines, methamphetamines, and marijuana. A computed tomography scan was completed in the emergency room demonstrating bony destruction of the left clavicle along with the superior left aspect of the sternum. He was admitted for evaluation by infectious disease and IV antibiotic treatment. Dr. Campos from cardiothoracic surgery was consulted for surgical recommendations. Review of Systems Review of systems was completed and was negative except as noted in the HPI. His only real complaint is that he would like more IV pain medication Past Medical History Past Medical History: No Reported History Additional Past Medical History / Comment(s): kidney stones, heroin abuse, osteomyelitis, hepatitis C, superficial clot in the left arm History of Any Multi-Drug Resistant Organisms: MRSA Year Discovered:: 2016/MRSA MDRO Source:: unknown Past Surgical History: Hernia Repair, Orthopedic Surgery Additional Past Surgical History / Comment(s): lt arm Past Anesthesia/Blood Transfusion Reactions: No Reported Reaction Past Psychological History: No Psychological Hx Reported Smoking Status: Current every day smoker Past Alcohol Use History: Occasional Additional Past Alcohol Use History / Comment(s): Patient is a smoker of one pack to one and half packs per day. He denies any alcohol abuse. He does have history of marijuana and cocaine use. He denies any intranasal drug use. He admits to IV drug use. He has been at [place] in the past. Has active injection drug use at this time with heroin as the primary drug. His father uncle and grandfather are all physicians. 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 No animals where he is currently living. Has children but does not have custody Past Drug Use History: Heroin, IV Drug Use, Marijuana, Methamphetamine, Opiates - Past Family History Mother History Unknown: Yes Father Family Medical History: Coronary Artery Disease (CAD) Additional Family Medical History / Comment(s): alcoholism Medications and Allergies Home Medications Medication Instructions Recorded Confirmed Type No Known Home Medications 06/22/19 06/22/19 History Allergies Allergy/AdvReac Type Severity Reaction Status Date / Time ibuprofen Allergy Itching Verified 06/22/19 16:49 Penicillins Allergy Itching Verified 06/22/19 16:49 Surgical - Exam Vital Signs Temp Pulse Resp BP Pulse Ox 97.8 F 109 H 20 114/77 99 06/22/19 13:46 06/22/19 13:46 06/22/19 13:46 06/22/19 13:46 06/22/19 13:46 - General well developed, well nourished, no distress - Eyes PERRL, normal ocular movement - ENT no hearing loss, poor senior living - Neck no masses, no bruits, trachea midline - Respiratory Lungs sounds clear bilaterally. Respirations even, nonlabored. Currently on room air with oxygen saturation 97%. No clubbing or cyanosis present. - Cardiovascular S1, S2 present. No murmurs heard. Regular rate and rhythm. Palpable peripheral pulses bilaterally. No edema present. No calf pain or tenderness noted. - Abdomen Abdomen: soft, non tender, bowel sounds - Genitourinary Deferred - Rectum Deferred - Integumentary Skin is warm and dry with evidence of good perfusion. Multiple tattoos present. Area over left clavicle without redness or increased warmth, does appear slightly swollen but no fluctuance present, no movement of the bone with palpation no rash, no growths - Neurologic normal coordination, normal sensation - Musculoskeletal normal gait, normal posture - Psychiatric oriented to time, oriented to person, oriented to place, speech is normal, memory intact Results - Labs 06/23/19 07:27 06/23/19 07:27 Abnormal Lab Results - Last 24 Hours (Table) 06/22/19 06/22/19 06/22/19 Range/Units 15:12 15:25 17:32 Plt Count 125 L (150-450) k/uL Chloride (98-107) mmol/L BUN 22 H (9-20) mg/dL Glucose 71 L (74-99) mg/dL Urine Opiates Screen Detected H (NotDetected) Ur Amphetamines Screen Detected H (NotDetected) U Methamphetamines Scrn Detected H (NotDetected) U Marijuana (THC) Screen Detected H (NotDetected) 06/23/19 Range/Units 07:27 Plt Count (150-450) k/uL Chloride 109 H (98-107) mmol/L BUN (9-20) mg/dL Glucose 125 H (74-99) mg/dL Urine Opiates Screen (NotDetected) Ur Amphetamines Screen (NotDetected) U Methamphetamines Scrn (NotDetected) U Marijuana (THC) Screen (NotDetected) Diabetes panel 06/22/19 06/23/19 Range/Units 15:25 07:27 Sodium 139 140 (137-145) mmol/L Potassium 4.6 4.4 (3.5-5.1) mmol/L Chloride 105 109 H (98-107) mmol/L Carbon Dioxide 28 25 (22-30) mmol/L BUN 22 H 15 (9-20) mg/dL Creatinine 0.67 0.71 (0.66-1.25) mg/dL Glucose 71 L 125 H (74-99) mg/dL Calcium 9.2 8.7 (8.4-10.2) mg/dL AST 26 (17-59) U/L ALT 26 (4-49) U/L Alkaline Phosphatase 69 (38-126) U/L Total Protein 7.3 (6.3-8.2) g/dL Albumin 4.2 (3.5-5.0) g/dL Calcium panel 06/22/19 06/23/19 Range/Units 15:25 07:27 Calcium 9.2 8.7 (8.4-10.2) mg/dL Albumin 4.2 (3.5-5.0) g/dL Pituitary panel 06/22/19 06/23/19 Range/Units 15:25 07:27 Sodium 139 140 (137-145) mmol/L Potassium 4.6 4.4 (3.5-5.1) mmol/L Chloride 105 109 H (98-107) mmol/L Carbon Dioxide 28 25 (22-30) mmol/L BUN 22 H 15 (9-20) mg/dL Creatinine 0.67 0.71 (0.66-1.25) mg/dL Glucose 71 L 125 H (74-99) mg/dL Calcium 9.2 8.7 (8.4-10.2) mg/dL Adrenal panel 06/22/19 06/23/19 Range/Units 15:25 07:27 Sodium 139 140 (137-145) mmol/L Potassium 4.6 4.4 (3.5-5.1) mmol/L Chloride 105 109 H (98-107) mmol/L Carbon Dioxide 28 25 (22-30) mmol/L BUN 22 H 15 (9-20) mg/dL Creatinine 0.67 0.71 (0.66-1.25) mg/dL Glucose 71 L 125 H (74-99) mg/dL Calcium 9.2 8.7 (8.4-10.2) mg/dL Total Bilirubin 0.9 (0.2-1.3) mg/dL AST 26 (17-59) U/L ALT 26 (4-49) U/L Alkaline Phosphatase 69 (38-126) U/L Total Protein 7.3 (6.3-8.2) g/dL Albumin 4.2 (3.5-5.0) g/dL - Imaging CT scan - chest: report reviewed, image reviewed Assessment and Plan Assessment: 1. Questionable osteomyelitis of the left clavicle 2. Continued IV drug use 3. Current tobacco dependence 4. History of multiple infections Plan: The patient was seen and examined at the bedside. Chart/diagnostics were reviewed including computed tomography scan reviewed yesterday with Dr. Campos. The patient does continue to complain of pain at his left clavicle site and does request more IV narcotics. Otherwise, he remains afebrile, without leukocytosis, without redness/warmth/drainage from the site in question, with normal sed rate, C-reactive protein, and lactic acid. At this time we recommend continuing with IV antibiotics per infectious disease recommendations. Agree with interventional radiology consult for needle aspiration to determine appropriate course of treatment. Agree with blood cultures and echocardiogram. No surgical intervention at this time, however to be determined in the future based on response to clinical treatment. We counseled the patient to quit smoking, and quit using IV drugs. Continue medical therapy per primary care and infectious disease. Thank you Dr. Castillo for this consult. Please call us with any further questions Time with Patient: Greater than 30
[2019-06-23 12:47] LABS: HIV 1 AB Non-Reactive (Non-Reactive); HIV 2 AB Non-Reactive (Non-Reactive); HIV AB P24 Non-Reactive (Non-Reactive); HIV P24 AG Non-Reactive (Non-Reactive)
--- NOTE | 2019-06-23 12:51 | ECHOF ---
Referral Reason:Endocarditis MEASUREMENTS -------- HEIGHT: 188.0 cm WEIGHT: 88.5 kg BP: 123/70 RVIDd: 3.3 cm (< 3.3) IVSd: 1.2 cm (0.6 - 1.1) LVIDd: 4.1 cm (3.9 - 5.3) LVPWd: 1.1 cm (0.6 - 1.1) IVSs: 1.6 cm LVIDs: 2.3 cm LVPWs: 1.4 cm LA Diam: 3.0 cm (2.7 - 3.8) LAESV Index (A-L): 19.27 ml/m Ao Diam: 3.3 cm (2.0 - 3.7) AV Cusp: 2.5 cm (1.5 - 2.6) MV EXCURSION: 18.330 mm (> 18.000) MV EF SLOPE: 122 mm/s (70 - 150) EPSS: 0.5 cm MV E James: 0.91 m/s MV DecT: 222 ms MV A James: 0.65 m/s MV E/A Ratio: 1.40 RAP: 5.00 mmHg RVSP: 18.65 mmHg FINDINGS -------- Sinus rhythm. This was a technically good study. The left ventricular size is normal. Left ventricular wall thickness is normal. Overall left vent ricular systolic function is normal with, an EF between 60 - 65 %. The right ventricle is mildly enlarged. Normal LA size by volume 22+/-6 ml/m2. The right atrium is normal in size. Interatrial and interventricular septum intact. The aortic valve is trileaflet and appears structurally normal. The mitral valve is normal. Trace tricuspid regurgitation present. Right ventricular systolic pressure is normal at < 35 mmHg. Trace/mild (physiologic) pulmonic regurgitation. The aortic root size is normal. Normal inferior vena cava with normal inspiratory collapse consistent with estimated right atrial pre ssure of 5 mmHg. The inferior vena cava is mildly dilated. There is no pericardial effusion. CONCLUSIONS -------- 1. Sinus rhythm. 2. This was a technically good study. 3. The left ventricular size is normal. 4. Left ventricular wall thickness is normal. 5. Overall left ventricular systolic function is normal with, an EF between 60 - 65 %. 6. The right ventricle is mildly enlarged. 7. Normal LA size by volume 22+/-6 ml/m2. 8. The right atrium is normal in size. 9. Interatrial and interventricular septum intact. 10. The aortic valve is trileaflet and appears structurally normal. 11. The mitral valve is normal. 12. Trace tricuspid regurgitation present. 13. Right ventricular systolic pressure is normal at < 35 mmHg. 14. Trace/mild (physiologic) pulmonic regurgitation. 15. The aortic root size is normal. 16. Normal inferior vena cava with normal inspiratory collapse consistent with estimated right atrial pressure of 5 mmHg. 17. The inferior vena cava is mildly dilated. 18. There is no pericardial effusion. SHEET METAL HELPER: Janeth Camara RDCS
--- NOTE | 2019-06-23 13:05 | PN ---
PROGRESS NOTE DATE OF SERVICE: 06/23/2019 REASON FOR FOLLOWUP: Left clavicle osteomyelitis. INTERVAL HISTORY: The patient is currently a patient with continue complaining of pain to the left clavicular area and is complaining is negative the pain medication as needed to be the patient denies having any difficulty breathing. No nausea, vomiting. No abdominal pain, No diarrhea. PHYSICAL EXAMINATION: She is blood pressure is 114/57 with a pulse of 93, temperature 98.1 he is 100% on room air. General description is a middle-aged male, lying in bed in no distress. RESPIRATORY SYSTEM: Unlabored breathing, clear to auscultation anteriorly. HEART: S1, S2. Regular rate and rhythm. ABDOMEN: Soft, No tenderness. Left chest wall did have some swelling, no redness. LABS: Hemoglobin 13, white count of 6.5. BUN of 15, creatinine 0.71. Sedimentation rate and CRP both normal. Blood cultures have been negative so far. DIAGNOSTIC IMPRESSION AND PLAN: Patient with left clavicular destructive changes with concern for osteomyelitis. This patient did have history of IV drug use. CT was reviewed with radiologist and those destructive changes were not present on the CT that was done in January. Hopefully, they will be able to aspirate the area and the need the fluid for both for culture and cytology. For now, continue with vancomycin and will monitor clinical course closely. MMODL / IJN: [id number] /
--- NOTE | 2019-06-23 13:05 | US ---
EXAMINATION TYPE: US asp abscess/hemat/cyst DATE OF EXAM: 06/23/2019 HISTORY: Septic arthritis. Correlation CT chest 06/22/2019 Procedure: Maximal barrier technique was utilized. The skin overlying a suitable path to the patient 's left sternoclavicular joint was localized with ultrasound and the overlying skin prepped and drape d. Ultrasound was utilized with sterile technique. Lidocaine was used for local anesthesia. Under d irect ultrasound guidance a 25-gauge needle was advanced under direct ultrasound guidance and aspirat ed specimen obtained of the joint, approximately 1 cc of yellow fluid. Specimen submitted to microbi ology. Following the procedure, hemostasis achieved and the patient is discharged in stable conditio n without complication. IMPRESSION:STATUS POST ULTRASOUND GUIDED FINE-NEEDLE ASPIRATION OF left sternoclavicular joint fluid, biology IS PENDING. THIS PROCEDURE IS PERFORMED BY THE UNDERSIGNED.
[2019-06-23 13:10] LABS: Hepatitis B Core IgM Non-Reactive (Non-Reactive); Hepatitis B Surface Antibody Reactive (Non-Reactive); Hepatitis B Surface Antigen Non-Reactive (Non-Reactive)
[2019-06-23] MEDS: SODIUM CHLORIDE 0.9% 1,000 ML IV SCH ×2 (14:09→20:41)
--- NOTE | 2019-06-23 14:38 | CDI ---
Documentation Clarification Form Date: 06/23/2019 02:14:21 PM From: Spring Lmi RN, CCDS Admit Date: 06/22/2019 04:05:00 PM Patient Name: Vinicius Gallagher Visit Number: [id number] Discharge Date: ATTENTION: The Clinical Documentation Specialists (CDI) and [facility] Coding Staff appreciate your assistance in clarifying documentation. Please respond to the clarification below the line at the bottom and electronically sign. The CDI & [facility] Coding staff will review the response and follow-up if needed. Please note: Queries are made part of the Legal Health Record. If you have any questions, please contact the author of this message via ITS. Dr. Stacie Webber Osteomyelitis has been documented in the ER evaluation on 06/22/19 and in your consult and ongoing progress note and further clarification of the acuity of the osteomyelitis is needed. History/Risk Factors: IV Drug use, Heroin abuse, Hep C, Tobacco abuse Clinical Indicators:33-year-old male who was diagnosed in Mar 2019 for osteomyelitis should have completed 4 weeks of IV Vanco, did not follow-up and on 06/22/19 present to the ER with worsening swelling and redness of his sternal area and increasing pain. CT chest (06/22/19) showed destruction of the proximal clavicle near the sternoclavicular joint, soft tissue mass. Labs: WBC 8.8, Lactic acid 0.9, C - reactive protein <5.0 06/23/19 Ultrasound Cyst Aspiration: Results pending Treatment: Vancomycin 250mls@125mls/hr IVPB Q 8 H In your professional opinion, the left clavicular osteomyelitis, please specify the following: Acuity: Acute Chronic Subacute Unable to Determine Cause: Viral (specify organism if know): Bacterial (specify organism if know): Other (please specify): Unable to Determine Associated condition (if applicable): Major osseous defect (specify site) Other (please specify): (Last Revision: March 2017) CIARAD
--- NOTE | 2019-06-23 18:15 | P.PN ---
Subjective Progress Note Date: 06/23/19 (delayed charting seen at 0815) Principal diagnosis: chest pain Patient is a 33-year-old male past medical history of intravenous drug use resulting in a left sternal clavicular first rib joint osteomyelitis treated prior at [facility] and March 2019, prior kidney stones, and hepatitis C who presented to the emergency Department [facility] due to worsening swelling and redness of his sternal area along with increasing pain. In the ER here he underwent an extensive evaluation. Initial vital signs showed a pulse of 109. Laboratory analysis showed a platelet count of 125, BUN 22, glucose of 71 but was otherwise unremarkable. CT chest showed destruction of the proximal clavicle near the sternoclavicular joint, soft tissue mass, and a new oval focus or central bony lesion of the left first rib. He was given a dose of vancomycin and Rocephin. He also was given Dilaudid for pain control. Arrangements are made for admission. Infectious disease and cardiothoracic surgery consulted. The recommended IV antibiotics and aspiration of the fluid collection, no indication for surgery. He remained afebrile, WBC normal, and ESR/CRP normal. Patient seen and examined at bedside. He again requesting IV dilaudid at 2mg. I had a nasreen discussion with him that I will not be adding IV dilaudid as it increases euphoria but does not truely help pain more than morphine. We will increase his Morphine dose. I did explain to him that he has no physical signs of pain. He is not tachycardiac, hypertensive, diaphoretic, hunched over in pain, and no gritted teeth. We discussed the aforementioned findings and that if his culture is negative he will not need abx. He denies nausea, vomiting, or diarrhea. Objective - Vital Signs Vital signs: Vital Signs Temp 98.3 F 06/23/19 14: Pulse 82 06/23/19 14:22 Resp 17 06/23/19 14:22 BP 119/73 06/23/19 14: Pulse Ox 99 06/23/19 14:22 Intake & Output 06/22/19 06/23/19 06/23/19 18:59 06:59 18:59 Intake Total 2580 Balance 2580 Weight 88.451 kg 88.451 kg Intake: Amount of Fluid Infused ( 1000 ml) Intake, IV Titration 1580 Amount Sodium Chloride 0.9% 1, 1080 000 ml @ 135 mls/hr IV . Q7H25M [facility] Rx#:[id number] Vancomycin 1,500 mg In 500 Sodium Chloride 0.9% 250 ml @ 125 mls/hr IVPB Q8H [facility] Rx#:[id number] Other: Voiding Method Toilet # Voids 3 2 - Exam General: non toxic, no distress, appears at stated age Derm: warm, dry Head: atraumatic, normocephalic, symmetric Eyes: EOMI, no lid lag, anicteric sclera Mouth: no lip lesion, mucus membranes moist Cardiovascular: S1S2 reg, no murmur, positive posterior tibial pulse bilateral, Lungs: CTA bilateral, no rhonchi, no rales , no accessory muscle use Abdominal: soft, nontender to palpation, no guarding, no appreciable organomegaly Ext: no gross muscle atrophy, no edema, no contractures Neuro: CN II-XI grossly intact, no focal neuro deficits Psych: Alert, oriented, appropriate affect - Labs CBC & Chem 7: 06/23/19 07:27 06/23/19 07:27 Labs: Abnormal Lab Results - Last 24 Hours (Table) 06/23/19 06/23/19 Range/Units 07:27 07:27 Chloride 109 H (98-107) mmol/L Glucose 125 H (74-99) mg/dL Hep Bs Antibody Reactive H (Non-Reactive) Microbiology - Last 24 Hours (Table) 06/22/19 15:12 Blood Culture - Preliminary Blood No Growth after 24 hours Assessment and Plan Assessment: Probable osteomyelitis of the clavical and left aspect of the sternum - vanco - ID recs appreciated: await aspiration results - cardio thorasic recs appreciated no plan for surgery - blood cultures negative for 24 hours - ESR and CRP normal - pain control -Unable to do IV abx in [facility] and unable to bring to [facility] daily - Echo normal - Records reviewed from Mar 2019 and [facility]. Osteo should have completed 4 weeks of IV vanco, did not or follow-up with ID. Did not cuilture but + MRSA nasal swab and negative blood cultures at that point in time Hx of IVDA and multiple infections - Hep B and HIV negative Hep C - outpatient follow-up Tobacco abuse - nicotine replacement - cessation DVT prophylaxis: SCDs Discussed with: Patient, nursing, Morelia Concepcion NP, and Dr. Webber Anticipated discharge date: 1-[address]: home A total of 25 minutes was spent on the care of this complex patient more than 50% of the time was spent in counseling and care coordination.
[2019-06-24] MEDS: MORPHINE SULFATE 4 MG/ML SYRINGE IVP PRN ×7 (02:58→23:15)
[2019-06-24] MEDS: SODIUM CHLORIDE 0.9% 1,000 ML IV SCH ×3 (06:06→20:01)
[2019-06-24 07:00] LABS: HCT 42.9 % (39.0-53.0); HGB 13.9 gm/dL (13.0-17.5); MCH 29.5 pg (25.0-35.0); MCHC 32.3 g/dL (31.0-37.0); MCV 91.2 fL (80.0-100.0); Mean Platelet Volume 8.2; Platelet Count 226 k/uL (150-450); RBC 4.71 m/uL (4.30-5.90); RDW 14.3 % (11.5-15.5)
[2019-06-24] MEDS ORDERED: VANCOMYCIN TROUGH DUE 1 EACH MISC MISCELLANE ONE (07:00)
[2019-06-24 07:23] LABS: African American GFR (CKD) >90 (>60 ml/min/1.73 sqM); Anion Gap 7 mmol/L; Blood Urea Nitrogen 15 mg/dL (9-20); Calcium 8.7 mg/dL (8.4-10.2); Carbon Dioxide 24 mmol/L (22-30); Chloride 108 mmol/L (98-107); Glucose 91 mg/dL (74-99); Non-African American GFR(CKD) >90 (>60 ml/min/1.73 sqM); Potassium 4.5 mmol/L (3.5-5.1); Sodium 139 mmol/L (137-145)
[2019-06-24] MEDS: VANCOMYCIN 1,500 MG in SODIUM CHLORIDE 0.9% 250 ML IVPB SCH ×3 (10:07→23:16)
[2019-06-24] MEDS: PARoxetine 20 MG TAB PO SCH (10:23)
--- NOTE | 2019-06-24 15:48 | P.PN ---
Subjective Progress Note Date: 06/24/19 (delayed charting patient seen t 0920) Principal diagnosis: chest pain Patient is a 33-year-old male past medical history of intravenous drug use resulting in a left sternal clavicular first rib joint osteomyelitis treated prior at [facility] and March 2019, prior kidney stones, and hepatitis C who presented to the emergency Department [facility] due to worsening swelling and redness of his sternal area along with increasing pain. In the ER here he underwent an extensive evaluation. Initial vital signs showed a pulse of 109. Laboratory analysis showed a platelet count of 125, BUN 22, glucose of 71 but was otherwise unremarkable. CT chest showed destruction of the proximal clavicle near the sternoclavicular joint, soft tissue mass, and a new oval focus or central bony lesion of the left first rib. He was given a dose of vancomycin and Rocephin. He also was given Dilaudid for pain control. Arrangements are made for admission. Infectious disease and cardiothoracic surgery consulted. The recommended IV antibiotics and aspiration of the fluid collection, no indication for surgery. He remained afebrile, WBC normal, and ESR/CRP normal. CT guided aspiration cultures negative for 24 hours. Patient seen and examined at bedside. States that he is in pain is still there also states that he is feeling anxious. States that he takes benzodiazepines off the street every day to help deal with anxiety. We discussed that benzos are not a good option as they are not a custodial option, and I suggested paxil which he is agreeable to try. He is having some loose stools but no diarrhea. having some upset stomach. Objective - Vital Signs Vital signs: Vital Signs Temp 97.6 F 06/24/19 14:46 Pulse 98 06/24/19 14:46 Resp 16 06/24/19 14:46 BP 110/77 06/24/19 14:46 Pulse Ox 92 L 06/24/19 14:46 Intake & Output 06/23/19 06/24/19 06/24/19 18:59 06:59 18:59 Intake Total 2051. Balance Intake: Intake, IV Titration 2051. Amount Sodium Chloride 0.9% 1, 1552.5 000 ml @ 135 mls/hr IV . Q7H25M COUNTS INCLUDE 234 BEDS AT THE [facility] Rx#:[id number] Vancomycin 1,500 mg In 500 Sodium Chloride 0.9% 250 ml @ 125 mls/hr IVPB Q8H COUNTS INCLUDE 234 BEDS AT THE [facility] Rx#:[id number] Other: Voiding Method Toilet # Voids 2 2 2 - Exam General: non toxic, no distress, appears at stated age Derm: warm, dry Head: atraumatic, normocephalic, symmetric Eyes: EOMI, no lid lag, anicteric sclera Mouth: no lip lesion, mucus membranes moist Cardiovascular: S1S2 reg, no murmur, positive posterior tibial pulse bilateral, Lungs: Decrease bs bilateral, no rhonchi, no rales , no accessory muscle use Abdominal: soft, nontender to palpation, no guarding, no appreciable organomegaly Ext: no gross muscle atrophy, no edema, no contractures Neuro: CN II-XI grossly intact, no focal neuro deficits Psych: Alert, oriented, appropriate affect - Labs CBC & Chem 7: 06/24/19 06:21 06/24/19 06:21 Labs: Abnormal Lab Results - Last 24 Hours (Table) 06/24/19 Range/Units 06:21 Chloride 108 H (98-107) mmol/L Microbiology - Last 24 Hours (Table) 06/23/19 12:15 Gram Stain - Preliminary Aspirate Body Fluid Culture - Preliminary 06/23/19 12:15 Anaerobic Culture - Preliminary Aspirate 06/22/19 15:12 Blood Culture - Preliminary Blood No Growth after 24 hours Assessment and Plan Assessment: Probable osteomyelitis of the clavical and left aspect of the sternum - vanco - ID recs appreciated: await aspiration results negative for 24 hours - cardio thorasic recs appreciated no plan for surgery - blood cultures negative for 24 hours - ESR and CRP normal - pain control - [facility]x [facility] and unable to bring to [facility] daily - Echo normal - Records reviewed from Mar 2019 and [facility]. Osteo should have completed 4 weeks of IV vanco, did not or follow-up with ID. Did not cuilture but + MRSA nasal swab and negative blood cultures at that point in time Hx of IVDA and multiple infections - Hep B and HIV negative Hep C - outpatient follow-up Tobacco abuse - nicotine replacement - cessation DVT prophylaxis: SCDs Discussed with: Patient, nursing, Anticipated discharge date: in AM if final cultures negative Anticipated discharge place: home A total of 25 minutes was spent on the care of this complex patient more than 50% of the time was spent in counseling and care coordination.
[2019-06-24] MEDS: PANTOPRAZOLE 40 MG TABLET PO SCH (16:34)
[2019-06-24] MEDS: LACTOBACILLUS ACIDOPH & BULGAR 1 EACH PACKET PO SCH (21:36)
--- NOTE | 2019-06-24 23:17 | PN ---
PROGRESS NOTE DATE OF SERVICE: 06/24/2021 REASON FOR FOLLOW UP: Left clavicular lesion, question of osteomyelitis. INTERVAL HISTORY: The patient is currently afebrile. The patient is status post CT-guided aspirate of left clavicular area, cytology has been negative. Culture currently pending. The patient continues to complain of pain to the left chest wall area and no swelling or redness. No nausea or vomiting. No abdominal pain. No diarrhea. PHYSICAL EXAMINATION: Blood pressure 108/61 with a pulse of 80. Temperature 98.1. He is 98% on room air. General description is a middle-aged male lying in bed in no distress. Respiratory system: Unlabored breathing. Clear to auscultation anteriorly. Heart S1, S2. Regular rate and rhythm. ABDOMEN: Soft. No tenderness. LABS: Hemoglobin is 13.8, white count 6.0, BUN of 15, creatinine 0.74, vanco therapeutic at 15.2. The ultrasound-guided aspirate fluid culture so far pending. DIAGNOSTIC IMPRESSION AND PLAN: Patient admitted to the hospital with left upper chest pain and this patient's CT did show lesion of the clavicle. However, the patient with no fever, no white count. CRP and sed rate are normal. So far the aspirate culture negative. They remain to be negative. All these features are going against osteomyelitis. Other causes of this destructive lesion should be kept in mind possible trauma or malignancy though cytology was negative for any malignant cells. If cultures remain negative, recommend discontinue antibiotics. MMODL / IJN: [id number] /
[2019-06-25 02:04] VITALS: RESP 18; TEMP 97.9
[2019-06-25] MEDS: SODIUM CHLORIDE 0.9% 1,000 ML IV SCH ×2 (02:46→13:16)
[2019-06-25] MEDS: MORPHINE SULFATE 4 MG/ML SYRINGE IVP PRN ×4 (02:47→13:14)
[2019-06-25 07:34] VITALS: BP 95/58; PULSE 84
[2019-06-25] MEDS: PANTOPRAZOLE 40 MG TABLET PO SCH (09:10)
[2019-06-25] MEDS: PARoxetine 20 MG TAB PO SCH (09:10)
[2019-06-25] MEDS: VANCOMYCIN 1,500 MG in SODIUM CHLORIDE 0.9% 250 ML IVPB SCH (09:10)
[2019-06-25] MEDS: LACTOBACILLUS ACIDOPH & BULGAR 1 EACH PACKET PO SCH (09:25)
--- NOTE | 2019-06-25 15:25 | P.DS ---
Providers Date of admission: 06/22/19 16:05 Expected date of discharge: 06/25/19 Attending physician: Marcos Ojeda MD Consults: 06/22/19 16:06 Consult Physician Routine Consulting Provider: Stacie Webber Consult Reason/Comments: Osteomyelitis Do you want consulting provider notified?: Yes 06/22/19 17:40 Consult Physician Routine Consulting Provider: Hilda Campos Consult Reason/Comments: osteomyelitis of clavical Do you want consulting provider notified?: Yes Primary care physician: Stated None Hospital Course: Discharge Diagnosis: Left clavicular and sternal lesion- osteomyelitis Hx of IVDA Hep C Tobacco abuse Hospital Course: Patient is a 33-year-old male past medical history of intravenous drug use resulting in a left sternal clavicular first rib joint osteomyelitis treated prior at [facility] and March 2019, prior kidney stones, and hepatitis C who presented to the emergency Department [facility] due to worsening swelling and redness of his sternal area along with increasing pain. In the ER here he underwent an extensive evaluation. Initial vital signs showed a pulse of 109. Laboratory analysis showed a platelet count of 125, BUN 22, glucose of 71 but was otherwise unremarkable. CT chest showed destruction of the proximal clavicle near the sternoclavicular joint, soft tissue mass, and a new oval focus or central bony lesion of the left first rib. He was given a dose of vancomycin and Rocephin. He also was given Dilaudid for pain control. Arrangements are made for admission. Infectious disease and cardiothoracic surgery consulted. They initially recommended IV antibiotics and aspiration of the fluid collection, no indication for surgery. He remained afebrile, WBC normal, and ESR/CRP normal. CT guided aspiration cultures negative for 48 hours. He continued to have some chest pain and was requesting increased amount of IV narcotics. His cytology came back negative. He was determined stable for discharge back to correction. Recommended repeat CT chest in 4 weeks to ensure stability of the lesion. Of note patient reports he was in correction for 5 days befo re admission but still tested positive for opiate, benzos, amphetamines, and methamphetamines. Patient seen and examined at bedside. No nausea, no vomiting, no diarrhea, no shortness of breath, complains of shortness of breath Vital signs reviewed and stable. General: non toxic, no distress, appears at stated age Derm: warm, dry Head: atraumatic, normocephalic, symmetric Eyes: EOMI, no lid lag, anicteric sclera Mouth: no lip lesion, mucus membranes moist Cardiovascular: S1S2 reg, no murmur, positive posterior tibial pulse bilateral, Lungs: CTA bilateral, no rhonchi, no rales , no accessory muscle use Abdominal: soft, nontender to palpation, no guarding, no appreciable organomegaly Ext: no gross muscle atrophy, no edema, no contractures Neuro: CN II-XI grossly intact, no focal neuro deficits Psych: Alert, oriented, appropriate affect A total of 35 minutes of time were spent preparing this complex discharge summary . Patient Condition at Discharge: Stable Plan - Discharge Summary New Discharge Prescriptions: New PARoxetine [Paxil] 20 mg PO DAILY tab Discharge Medication List PARoxetine [Paxil] 20 mg PO DAILY tab 06/25/19 [Rx] Follow up Appointment(s)/Referral(s): None,Stated [Primary Care Provider] - 1-2 days Activity/Diet/Wound Care/Special Instructions: Activity: as tolerated Diet: regular Special Instructions: Repeat CT chest in 1 month for stability of lesion DX: Left calvicular lesion Discharge Disposition: OTHER INSTITUTION NOT DEFINED
--- NOTE | 2019-06-25 15:27 | PN ---
PROGRESS NOTE DATE OF SERVICE: 06/25/2019 REASON FOR FOLLOWUP: Abnormal CT and a question of left clavicle osteomyelitis. INTERVAL HISTORY: The patient is currently afebrile. The patient is breathing comfortably. The patient denies having any worsening chest pain. No nausea, no vomiting. No abdominal pain no diarrhea. PHYSICAL EXAMINATION: Blood pressure is 95/58 with a pulse of 84, temperature of 97.9, he is 99% on room air. The patient is a middle-aged male, up in the chair in no distress. HEENT: Examination, no pallor or scleral icterus. Left chest wall with minimal prominence at the clavicular area, no swelling, no redness. No open wound or any drainage. LUNGS: Unlabored breathing, clear to auscultation anteriorly. HEART: S1, S2. Regular rate and rhythm. ABDOMEN: Soft no tenderness. LABS: The ultrasound-guided fluid aspirate are currently negative. His creatinine 0.74. CRP. Sedimentation rate 9. Normal blood culture has been negative. DIAGNOSTIC IMPRESSION AND PLAN: Patient with left-sided chest pain. This has been noticed to have a left clavicular Focalin with concern for possible osteomyelitis: however, clinically the patient is not behaving as osteomyelitis with no fever, currently with no local signs of inflammation. CRP, sedimentation rate, and culture remains to be negative. Recommend no antibiotics. The patient does give a diagnosis of osteomyelitis in March and has not been treated. If it was an osteomyelitis, we should have seen significant worsening without any treatment, as though this does not get better by itself. I would recommend repeating a CAT scan in one month to confirm stability of this destructive lesion at the left clavicle which could be related to possible trauma and if there was any worsening at that time, may warrant surgical exploration, deeper biopsies and cultures. Questions and concerns were answered. This was communicated to the admitting physician working on discharge. MMODL / IJN: [id number] /
[2019-06-26] MEDS ORDERED: VANCOMYCIN TROUGH DUE 1 EACH MISC MISCELLANE ONE (07:00)
== END 2019-06-25 16:04 | DRG 541 ==
LOC: EC 13:40 → 4SSUR 16:05
PROVIDERS: ADMIT Internal Medicine; ATTEND Internal Medicine
PROC: 0RB Upper Joints, Excision (ICD-10-PCS; principal; 2019-06-23)
DX: M86.112 Other acute osteomyelitis, left shoulder (principal); B19.20 Unspecified viral hepatitis C without hepatic coma; F17.200 Nicotine dependence, unspecified, uncomplicated; F41.9 Anxiety disorder, unspecified; Z82.49 Family history of ischemic heart disease and other diseases of the circulatory system; Z88.6 Allergy status to analgesic agent; Z86.14 Personal history of Methicillin resistant Staphylococcus aureus infection; Z87.442 Personal history of urinary calculi; Z88.0 Allergy status to penicillin; Z88.8 Allergy status to other drugs, medicaments and biological substances
CPT/HCPCS: 10160; 36415; 71260; 80048; 80053; 80202; 80306; 83605; 85025; 85027; 85652; 86140; 86705; 86706; 87040; 87070; 87075; 87205; 87340; 87390; 88173; 93306; 96361; 96365; 96366; 96375; 96376; 99285

== ENCOUNTER → 2019-07-23 | Outpatient (CLI) | payer BC ==
--- NOTE | 2019-07-23 16:50 | CT ---
EXAMINATION TYPE: CT chest w con DATE OF EXAM: 07/23/2019 COMPARISON: 06/22/2019 HISTORY: Follow up for left clavicular lesion. CT DLP: 588 mGycm, Automated exposure control for dose reduction was used. CONTRAST: Performed injected with 100ml mL of Isovue 300. TECHNIQUE: Axial images were obtained at 5 mm thick sections. Reconstructed images are reviewed on [employer] computer in the coronal plane. FINDINGS: Portion of the thyroid visualized is normal. No suspicious lung nodules or focal infiltrates are present. No enlarged mediastinal or hilar adenopathy is evident. The ascending aorta diameter at the level o f the main pulmonary artery is 2.8 cm. The main pulmonary artery diameter at the bifurcation is 2.[address] sections are obtained through the upper abdomen. Abdomen is essentially unremarkable. Attention is paid to the first rib and clavicular region. Sternal clavicular junction on the left rem ains stable in appearance. There is some irregularity of the proximal clavicular margin. Joint space is somewhat prominent. Cortical margin on the sternum appears largely intact. The sagittal plane there is a lucency extending through the distal left first rib. This is a new find ing from the comparison and interval fracture should be considered. No suspicious enhancement is evident. No abscess formation is clearly identified. There is some low-d ensity collection in the sternal clavicular junction. No enhancing cordero however are evident suggest abscess. IMPRESSIONS: 1. Findings of the left first sternal clavicular junction appears stable. No new cortical erosion is identified. 2. In the sagittal plane there appears to be a distal first rib fracture. This appears to be new from June 2019. 3. Diminishing density within the joint space of the left sternal clavicular junction.
== END | disposition home or self-care (01) ==
LOC: RADCTMAIN 13:59
PROVIDERS: ATTEND Nurse Practitioner Family
DX: M89.9 Disorder of bone, unspecified (principal)
CPT/HCPCS: 71260; Q9967